=== PATIENT | female | born 1985 | race Caucasian/White ===

== ENCOUNTER → 2018-12-18 | Outpatient (CLI) | payer BC ==
[~2018-12-18] MED LIST: CONRAY-43 43% 50ML VIAL (Q9960) As Ordered ONE; PROHANCE 279.3MG/ML 5ML VIAL (A9576) As Ordered ONE
--- NOTE | 2018-12-18 09:45 | REP ---
MR arthrogram right hip: History: Pain in the right hip. Question labral tear. Decreased range of motion. Comparison studies: No comparison radiographs available. Technique: Precontrast imaging includes coronal T1 and T2-weighted scans of both hips. Postcontrast small field of view high resolution axial, coronal and sagittal images are acquired in T1 and T2-weighted scans with fat saturation. MR arthrographic findings: Pre injection imaging demonstrates normal cortical and medullary bone signal intensity in the proximal femurs bilaterally. There is no evidence to suggest avascular necrosis. There is no significant hip joint effusion on either side. Periarticular soft tissues are unremarkable. Hamstring tendon insertions appear intact. Postcontrast imaging shows good filling and enhancement of the right hip articulation. Ligamentum teres is intact. There is no evidence of acetabular labral cartilage tear. No loose body is seen. Post injection imaging demonstrates filling of the a periarticular fluid collection in the anterior soft tissues at the level of the hip articulation just posterior to the femoral artery and vein. This fluid collection postinjection measures 13 mm x 29 mm x 10 mm. Pre injection there is only a tiny sliver of fluid in this location. The findings are compatible with a small periarticular ganglion cyst. Enhanced fluid can be seen tracking into this from the anterior aspect of the joint. This is not felt to reflect injection artifact. A no other periarticular abnormality. Impression: No evidence of labral tear or other internal derangement. Anterior periarticular ganglion cyst is filled with enhanced saline on post injection imaging as above. Electronically Signed by Chris Azul MD 12/18/2018 12:55 P
--- NOTE | 2018-12-18 17:29 | REP ---
RIGHT HIP ARTHROGRAM The procedure was performed under the direction supervision of Dr. Azul. The benefits and risks including but not limited to pain, infection, bleeding and anaphylaxis were explained to the patient and informed consent was obtained. The right femoral neck was localized using fluoroscopic guidance. Skin was prepped and draped in a sterile fashion. 1% lidocaine was used as a local anesthetic. Using fluoroscopic guidance a 22 gauge spinal needle was inserted and advanced to the femoral neck. 0.5 ml of Conray 43 was injected to verify placement. 11 ml of a solution containing 20 ml of sterile saline and 0.15 ml of ProHance was injected into the joint. The needle was removed and the patient was taken to MRI for postprocedural imaging. The patient tolerated the procedure well and there were no immediate complications. Less than 6 seconds of fluoro time was utilized for this procedure. Electronically Signed by AMANDO Kim 12/18/2018 03:29 P Electronically Signed by Chris Azul MD 12/18/2018 05:20 P
== END ==
LOC: M RADPRO 06:59
PROVIDERS: ATTEND Physician Assistant
DX: M67.451 Ganglion, right hip (principal)
CPT/HCPCS: 27093; 73723; 77002; A9576; Q9960

== ENCOUNTER → 2019-04-16 | Outpatient (CLI) | payer BC ==
--- NOTE | 2019-05-06 03:52 | ECWPNPC ---
PATIENT NAME: CICI QUEZADA : 1985 GENDER: FEMALE VISIT DATE: 04/16/2019 DISCHARGE DATE: 04/16/19 1229 VISIT LOCKED DATE TIME: PHYSICIAN: BARRY ABBOTT RESOURCE: BARRY ABBOTT REASON FOR APPOINTMENT 1. BACK PAIN/DISCOMFORT HISTORY OF PRESENT ILLNESS PAIN SCREENIN-YEAR-OLD FEMALE REFERRED BY [facility] FOR CHRONIC LOW BACK PAIN, RIGHT GREATER THAN LEFT. THIS BEGAN APPROXIMATELY 2 YEARS AGO AFTER WEIGHT LIFTING SHE BEGAN TO DEVELOP RIGHT LOW BACK PAIN. THIS IMPROVED WITH CONSERVATIVE CARE. AFTER RUNNING FOR A LONG DISTANCE THIS PAST FALL SHE BEGAN TO EXPERIENCE SEVERE PAIN.RATING PAIN LEVEL A 3/10 VAS. DESCRIBES PAIN INTERMITTENT LOW BACK SPASM RIGHT GREATER THAN LEFT. HAS FAILED CONSERVATIVE CARE TO INCLUDE PHYSICAL THERAPY AND PHOTOGRAPHIC TECHNICIAN. REVIEWED MRI AND DISCUSSED TREATMENT OPTIONS. DENIES RECENT FEVER, ILLNESS, OR SUDDEN WEIGHT LOSS. REPORTING NORMAL BOWEL AND BLADDER FUNCTION. PATIENT HAS A COMPLAINT OF ACUTE OR CHRONIC PAIN :YES FALL RISK SCREENING: SCREENING :NO FALLS REPORTED IN THE LAST YEAR CURRENT MEDICATIONS TAKING CHRISTA 3-0.02 MG TABLET 1 TABLET ORALLY ONCE A DAY NOT-TAKING CHRISTA CHRISTA TAKE ONE TABLET BY MOUTH EVERY DAY MEDICATION LIST REVIEWED AND RECONCILED WITH THE PATIENT PAST MEDICAL HISTORY ACNE BACK PAIN PLANTAR FASCITIS ALLERGIES N.K.D.A. SURGICAL HISTORY WISDOM TEETH EXTRACT FAMILY HISTORY FATHER: ALIVE 68 YRS, HYPERLIPIDEMIA MOTHER: ALIVE 66 YRS, HYPERLIPIDEMIA, HYPERTENSION MATERNAL AUNT: ALIVE, HX BREAST CANCER IN HER 50'S 1 BROTHER(S) - HEALTHY. DENIES FAMILY HX OF COLON OR OVARIAN CANCER. SOCIAL HISTORY GENERAL: TOBACCO USE ARE YOU A:NONSMOKER NEVER SMOKER HIV / HEP-C SCREENING HIV TEST OFFERED TO PATIENT:YES DATE OFFERED:12/28/2016 TEST ACCEPTED:NO HEP-C TEST OFFERED TO PATIENT:NO REASON:PATIENT DECLINED OTHERS AT HOME: SPOUSE. 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 DIET: HEALTHY. LANGUAGE DANISH. DOMESTIC VIOLENCE DENIES. RECREATIONAL DRUG USE DRUG USE?NO EXERCISE: CROSSFIT 5 DAYS WEEKLY. LEARNING BARRIERS / SPECIAL NEEDS CHANGE FROM LAST VISIT?NO BARRIERS TO LEARNING?NO HEARING IMPAIRED?NO VISION IMPAIRED?YES :CORRECTIVE LENSES COGNITIVELY IMPAIRED?NO READINESS TO LEARN?YES LEARNING PREFERENCES?NO LEARNING CAPABILITIES PRESENT?YES EMOTIONAL BARRIERS?NO SPECIAL DEVICES?NO SAP DEVELOPER NEEDED?NO PAIN CLINIC PFS, CLERGY, PUBLIC HEALTH REFERRALS HAS THE PATIENT BEEN EDUCATED REGARDING HIS/HER PLAN OF CARE?YES HAS THE PATIENT BEEN EDUCATED REGARDING PAIN, THE RISK FOR PAIN, THE IMPORTANCE OF EFFECTIVE PAIN MANAGEMENT, AND THE PAIN ASSESSMENT PROCESS?YES LATEX QUESTIONNAIRE LATEX ALLERGY : HAVE YOU EVER DEVELOPED ANY TYPE OF REACTION AFTER HANDLING LATEX PRODUCTS SUCH RUBBER GLOVES, CONDOMS, DIAPHRAGMS, BALLOONS, SOCKS, OR UNDERWEAR?NO LATEX ALLERGY : HAVE YOU EVER DEVELOPED ANY TYPE OF REACTION DURING OR AFTER DENTAL APPOINTMENT, VAGINAL/RECTAL EXAMINATION, SURGICAL PROCEDURE, OR ANY OTHER EXPOSURE?NO LATEX RISK : HAVE YOU EVER HAD ANY DIFFICULTY BREATHING OR HIVES AFTER EATING OR HANDLING ANY FRUITS, OR VEGETABLES; SUCH KIWI, BANANAS, STONE FRUITS, OR CHESTNUTSNO LATEX RISK : DO YOU HAVE A PREVIOUS PERSONAL HISTORY OF MORE THAN NINE SURGERIES, SPINA BIFIDA, OR REPEATED CATHERIZATIONS? NO LATEX RISK : ARE YOU FREQUENTLY EXPOSED TO LATEX PRODUCTS IN YOUR OCCUPATION?NO DATE ASKED : 02/13/2019 CAFFEINE CAFFEINE USE?NO ADVANCE DIRECTIVE ADVANCE DIRECTIVE DISCUSSED WITH PATIENT:YES 04/16/2019 PATIENT GIVEN INFORMATION ON HCP AT THIS TIME, DECLINED ASSISTANCE IN FILLING OUT THE FORM JS YAZDANISM NO YAZIDI BELIEFS THAT WOULD IMPACT HEALTH CARE. MARITAL STATUS: . 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 SEXUAL HX HAD SEX IN THE LAST 12 MONTHS (VAGINAL, ORAL, OR ANAL)?YES WITHMEN ONLY PREVENTION STRATEGIES DISCUSSED:CONDOMS USE PROTECTION?YES HOW OFTEN?ALL OF THE TIME LMP: HAVE YOU EVER HAD AN STD?NO HOSPITALIZATION/MAJOR DIAGNOSTIC PROCEDURE DENIES PAST HOSPITALIZATION REVIEW OF SYSTEMS REVIEWED BY: PROVIDER: BARRY CORTES . CONSTITUTIONAL: ANY CHANGE IN YOUR MEDICAL CONDITION? NO . CHILLS NO . FEVER NO . INFECTION: DO YOU HAVE NEW INFECTIONS? NO . DO YOU HAVE HISTORY OF MRSA? NO . MUSCULOSKELETAL: ANY NEW PATTERNS OF PAIN OR NUMBNESS? NO . SYTEMIC LUPUS NO . GASTROENTEROLOGY: ANY NEW CHANGE IN BOWEL CONTROL? NO . BARRETTS ESOPHAGUS NO . CIRRHOSIS NO . HEPATITIS NO . LIVER FAILURE NO . ACID REFLUX NO . UNEXPLAINED WEIGHT LOSS NO . GENITOURINARY: ANY NEW CHANGE IN BLADDER CONTROL? NO . IS THERE A CHANCE YOU COULD BE ? NO . HEMATOLOGY/LYMPH: DO YOU TAKE ANY BLOOD THINNERS? (FOR EXAMPLE- COUMADIN, PLAVIX, AGGRENOX, PLATEL, PRADAXA, OR XARELTO) NO . WHEN WAS YOUR LAST DOSE? DATE: TIME: . LOW PLATELET COUNT NO . SICKLE CELL DISEASE NO . VON WILLIEBRANDS NO . FACTOR V LEIDEN NO . THALLASEMIA NO . ANEMIA NO . EASY BRUISING NO . NEUROLOGY: HAVE YOU FALLEN IN THE PAST 12 MONTHS? NO . ANY NEW EXTREMITY NUMBNESS OR WEAKNESS? NO . HEAD INJURY NO . DEMENTIA NO . CEREBRAL PALSY NO . MULTIPLE SCLEROSIS NO . DIZZINESS NO . HEADACHE NO . STROKES NO . VERTIGO NO . CARDIOLOGY: DO YOU HAVE A PACEMAKER OR DEFIBRILLATOR? NO . ANGINA NO . HEART ATTACK NO . HEART SURGERY NO . CONGESTIVE HEART FAILURE/FLUID OVERLOAD NO . CHEST PAIN NO . HIGH BLOOD PRESSURE NO . IRREGULAR HEART BEAT NO . RESPIRATORY: HAVE YOU BEEN SICK IN THE PAST WEEK? NO . FEVER NO . FLU LIKE SYMPTOMS? NO . CPAP NO . BYPAP NO . ASTHMA NO . EMPHYSEMA NO . CHRONIC LUNG DISEASES NO . SHORTNESS OF BREATH ON EXERTION NO . COUGH NO . SNORING NO . INTEGUMENTARY: DO YOU HAVE ANY RASHES OR OPEN SORES? NO . ALLERGIC/IMMUNO: ARE YOU ALLERGIC TO IV DYE? NO . ANY NEW ALLERGIES? NO . PSYCHIATRIC: DO YOU HAVE THOUGHTS OF HURTING YOURSELF OR SOMEONE ELSE? NO . ARE YOU ABUSED, NEGLECTED, OR IN AN UNSAFE ENVIRONMENT? NO . ENDOCRINOLOGY: ARE YOU DIABETIC? NO . THYROID DISORDER NO . OTHER: DO YOU NEED ANY PRESCRIPTIONS? NO . IF YES, PLEASE LIST: ____ . ANY NEW PROBLEMS WITH YOUR MEDICATIONS? NO . WHEN DID YOU LAST EAT? ____ . WHEN DID YOU LAST DRINK? ____ . WHAT DID YOU LAST DRINK? ____ . NAME OF PERSON DRIVING YOU HOME? ____ . DO YOU HAVE ANY OTHER QUESTIONS OR CONCERNS NO . VITAL SIGNS WT 144.8 LBS, HT 63 IN, BMI 25.65 INDEX, BP 126/77 MM HG, HR 57 /MIN, RR 18 /MIN, TEMP 98.0 F, OXYGEN SAT % 100%, SAFE IN ENV? (Y/N) YES, REVIEWED BY: HESHAM. EXAMINATION GENERAL EXAMINATION: GENERAL AWAKE,ALERT ,PLEAASANT . PSYCH AFFECT NORMAL . HEENT: HEAD: NORMOCEPHALIC, EYES: PUPILS ARE EQUAL AND REACTIVE TO LIGHT.. FACE: UNREMARKABLE. NECK:NO LYMPHADENOPATHY, SUPPLE, NO THYROMEGALLY, NO JVD OR BRUITS. LUNGS: LUNG HAYNES ARE CLEAR TO AUSCULTATION BILATERALLY. GOOD MOVEMENT OF AIR . HEART: S1, S2 IN A REGULAR RATE AND RHYTHM. NO SIGNIFICANT MURMURS, RUBS OR GALLOPS NOTED . MUSCULOSKELETAL: MUSCLE STRENGTH TESTING 4/5 BILATERAL LOWER EXTREMITIES. LUMBAR: TRIGGER POINTS:, ELICITED WITH PALPATION OVER RIGHT LUMBAR PARAVERTEBRAL MUSCLES.ACTIVE ROJM OF SPINE AGGREVATES PAIN.. DIAGNOSTIC TESTS REVIEWED MRI L/S SPINE-08/2018. ASSESSMENTS MYALGIA, OTHER SITE - M79.18 (PRIMARY) TREATMENT MYALGIA, OTHER SITE NOTES: TPI RIGHT LOW BACK,TRIGGER POINT INJECTIONS MATERIAL WAS PUBLISHED TO PORTAL. PREVENTIVE MEDICINE PAIN CLINIC TEACHING: PROCEDURE TEACHING PRINTED AND REVIEWED INFORMATION ON TRIGGER POINT INJECTION PROCEDURE WITH PATIENT. ALSO REVIEWED PRE-PROCEDURE INSTRUCTIONS. PATIENT VERBALIZED AN UNDERSTANDING. LUIS STEIN 04/16/2019 1:17:45 PM > . PROCEDURE CODES FA211 ESTABILISHED PATIENT [facility] CHARGE DISPOSITION & COMMUNICATION FOLLOW UP POST (REASON: TPI RIGHT LOW BACK) ELECTRONICALLY SIGNED BY SOPHIA AGUILAR ON 05/05/2019 AT 09:17 AM EDT DISCLAIMER : THIS IS A VISIT SUMMARY EXTRACTED FROM THE [employer] CHART. IT IS NOT A COPY OF THE [employer] PROGRESS NOTE. MING
== END ==
LOC: M PAIN 11:00
PROVIDERS: ATTEND Nurse Practitioner Family
DX: M79.18 Myalgia, other site (principal); Z79.899 Other long term (current) drug therapy

== ENCOUNTER → 2019-06-25 | Outpatient (CLI) | payer BC | LOC: M LABSMTC 13:52 | PROVIDERS: ATTEND Anesthesiology | DX: Z11.59 Encounter for screening for other viral diseases (principal) | CPT/HCPCS: C9803; U0002 ==

== ENCOUNTER → 2019-06-26 | Outpatient (CLI) | payer BC ==
[~2019-06-26] MED LIST changes: +BUPIVACAINE HCL 0.25% 10ML VIAL As Ordered ONE; +BUPIVACAINE HCL 0.25% 30ML VIAL As Ordered ONE; -CONRAY-43 43% 50ML VIAL (Q9960) As Ordered ONE; -PROHANCE 279.3MG/ML 5ML VIAL (A9576) As Ordered ONE
--- NOTE | 2019-06-27 04:35 | ECWPNPC ---
PATIENT NAME: CICI QUEZADA : 1985 GENDER: FEMALE VISIT DATE: 06/26/2019 DISCHARGE DATE: 06/26/19 0942 VISIT LOCKED DATE TIME: PHYSICIAN: LIUDMILA SAAB MD RESOURCE: LIUDMILA SAAB MD REASON FOR APPOINTMENT 1. TPI RIGHT LOW BACK. HISTORY OF PRESENT ILLNESS HISTORY OF PRESENT ILLNESS: PAIN THE PATIENT DESCRIBES THE PAIN... FALL RISK SCREENING: SCREENING :NO FALLS REPORTED IN THE LAST YEAR CURRENT MEDICATIONS TAKING CHRISTA 3-0.02 MG TABLET 1 TABLET ORALLY ONCE A DAY NOT-TAKING CHRISTA CHRISTA TAKE ONE TABLET BY MOUTH EVERY DAY MEDICATION LIST REVIEWED AND RECONCILED WITH THE PATIENT PAST MEDICAL HISTORY ACNE BACK PAIN PLANTAR FASCITIS ALLERGIES N.K.D.A. SURGICAL HISTORY WISDOM TEETH EXTRACT FAMILY HISTORY FATHER: ALIVE 68 YRS, HYPERLIPIDEMIA MOTHER: ALIVE 66 YRS, HYPERLIPIDEMIA, HYPERTENSION MATERNAL AUNT: ALIVE, HX BREAST CANCER IN HER 50'S 1 BROTHER(S) - HEALTHY. DENIES FAMILY HX OF COLON OR OVARIAN CANCER. SOCIAL HISTORY GENERAL: TOBACCO USE ARE YOU A:NONSMOKER NEVER SMOKER LATEX QUESTIONNAIRE LATEX ALLERGY : HAVE YOU EVER DEVELOPED ANY TYPE OF REACTION AFTER HANDLING LATEX PRODUCTS SUCH RUBBER GLOVES, CONDOMS, DIAPHRAGMS, BALLOONS, SOCKS, OR UNDERWEAR?NO LATEX ALLERGY : HAVE YOU EVER DEVELOPED ANY TYPE OF REACTION DURING OR AFTER DENTAL APPOINTMENT, VAGINAL/RECTAL EXAMINATION, SURGICAL PROCEDURE, OR ANY OTHER EXPOSURE?NO DATE ASKED : 02/13/2019 LATEX RISK : HAVE YOU EVER HAD ANY DIFFICULTY BREATHING OR HIVES AFTER EATING OR HANDLING ANY FRUITS, OR VEGETABLES; SUCH KIWI, BANANAS, STONE FRUITS, OR CHESTNUTSNO LATEX RISK : DO YOU HAVE A PREVIOUS PERSONAL HISTORY OF MORE THAN NINE SURGERIES, SPINA BIFIDA, OR REPEATED CATHERIZATIONS? NO LATEX RISK : ARE YOU FREQUENTLY EXPOSED TO LATEX PRODUCTS IN YOUR OCCUPATION?NO ALCOHOL SCREENING DID YOU HAVE A DRINK CONTAINING ALCOHOL IN THE PAST YEAR?YES HOW OFTEN DID YOU HAVE SIX OR MORE DRINKS ON ONE OCCASION IN THE PAST YEAR?NEVER (0 POINTS) HOW MANY DRINKS DID YOU HAVE ON A TYPICAL DAY WHEN YOU WERE DRINKING IN THE PAST YEAR?3 OR 4 (1 POINT) HOW OFTEN DID YOU HAVE A DRINK CONTAINING ALCOHOL IN THE PAST YEAR?MONTHLY OR LESS (1 POINT) POINTS2 INTERPRETATIONNEGATIVE RECREATIONAL DRUG USE DRUG USE?NO CAFFEINE CAFFEINE USE?NO SEXUAL HX HAD SEX IN THE LAST 12 MONTHS (VAGINAL, ORAL, OR ANAL)?YES WITHMEN ONLY PREVENTION STRATEGIES DISCUSSED:CONDOMS USE PROTECTION?YES HOW OFTEN?ALL OF THE TIME LMP: HAVE YOU EVER HAD AN STD?NO HIV / HEP-C SCREENING HIV TEST OFFERED TO PATIENT:YES DATE OFFERED:12/28/2016 TEST ACCEPTED:NO HEP-C TEST OFFERED TO PATIENT:NO 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 LANGUAGE TAJIK. 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 LEARNING BARRIERS / SPECIAL NEEDS CHANGE FROM LAST VISIT?NO BARRIERS TO LEARNING?NO HEARING IMPAIRED?NO VISION IMPAIRED?YES COGNITIVELY IMPAIRED?NO :CORRECTIVE LENSES READINESS TO LEARN?YES LEARNING PREFERENCES?NO LEARNING CAPABILITIES PRESENT?YES EMOTIONAL BARRIERS?NO SPECIAL DEVICES?NO RETAIL MERCHANDISER TECHNICIAN NEEDED?NO DOMESTIC VIOLENCE DENIES. 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 EXERCISE: CROSSFIT 5 DAYS WEEKLY. MARITAL STATUS: . OTHERS AT HOME: SPOUSE. NEW PATIENT PAIN DIARY TODAY'S VISIT 06/25/19 PATIENT DESCRIBES PAIN :BURNING, IT COMES AND GOES FROM 0-10, WHAT LEVEL IS YOUR PAIN TODAY?4 PRECIPITATING FACTORS SITTING ALLEVIATING FACTORS STANDING, MASSAGE IMPACT ON FUNCTION NO PAIN CLINIC PFS, CLERGY, PUBLIC HEALTH REFERRALS HAS THE PATIENT BEEN EDUCATED REGARDING HIS/HER PLAN OF CARE?YES HAS THE PATIENT BEEN EDUCATED REGARDING PAIN, THE RISK FOR PAIN, THE IMPORTANCE OF EFFECTIVE PAIN MANAGEMENT, AND THE PAIN ASSESSMENT PROCESS?YES ADVANCE DIRECTIVE ADVANCE DIRECTIVE DISCUSSED WITH PATIENT:YES PATIENT GIVEN INFORMATION ON HCP AT THIS TIME, DECLINED ASSISTANCE IN FILLING OUT THE FORM HOSPITALIZATION/MAJOR DIAGNOSTIC PROCEDURE NO HOSPITALIZATION HISTORY. REVIEW OF SYSTEMS REVIEWED BY: PROVIDER: LIUDMILA SAAB MD . CONSTITUTIONAL: ANY CHANGE IN YOUR MEDICAL CONDITION? NO . CHILLS NO . FEVER NO . INFECTION: DO YOU HAVE NEW INFECTIONS? NO . DO YOU HAVE HISTORY OF MRSA? NO . MUSCULOSKELETAL: ANY NEW PATTERNS OF PAIN OR NUMBNESS? PAIN IS WORSE . GASTROENTEROLOGY: ANY NEW CHANGE IN BOWEL CONTROL? NO . GENITOURINARY: ANY NEW CHANGE IN BLADDER CONTROL? NO . IS THERE A CHANCE YOU COULD BE ? NO . HEMATOLOGY/LYMPH: DO YOU TAKE ANY BLOOD THINNERS? (FOR EXAMPLE- COUMADIN, PLAVIX, AGGRENOX, PLATEL, PRADAXA, OR XARELTO) NO . WHEN WAS YOUR LAST DOSE? DATE: TIME: . NEUROLOGY: HAVE YOU FALLEN IN THE PAST 12 MONTHS? NO . ANY NEW EXTREMITY NUMBNESS OR WEAKNESS? NO . CARDIOLOGY: DO YOU HAVE A PACEMAKER OR DEFIBRILLATOR? NO . RESPIRATORY: HAVE YOU BEEN SICK IN THE PAST WEEK? NO . FEVER NO . FLU LIKE SYMPTOMS? NO . COUGH NO . INTEGUMENTARY: DO YOU HAVE ANY RASHES OR OPEN SORES? NO . ALLERGIC/IMMUNO: ARE YOU ALLERGIC TO IV DYE? NO . ANY NEW ALLERGIES? NO . PSYCHIATRIC: DO YOU HAVE THOUGHTS OF HURTING YOURSELF OR SOMEONE ELSE? NO . ARE YOU ABUSED, NEGLECTED, OR IN AN UNSAFE ENVIRONMENT? NO . ENDOCRINOLOGY: ARE YOU DIABETIC? NO . OTHER: DO YOU NEED ANY PRESCRIPTIONS? NO . IF YES, PLEASE LIST: ____ . ANY NEW PROBLEMS WITH YOUR MEDICATIONS? NO . WHEN DID YOU LAST EAT? ____06/25/19 2400 . WHEN DID YOU LAST DRINK? ____06/26/19 0600 . WHAT DID YOU LAST DRINK? ____WATER . NAME OF PERSON DRIVING YOU HOME? ____HUSBAND . DO YOU HAVE ANY OTHER QUESTIONS OR CONCERNS NO . VITAL SIGNS WT 141.8 LBS, HT 63 IN, BMI 25.12 INDEX, BP 126/63 MM HG, HR 55 /MIN, RR 18 /MIN, TEMP 97.4 F, OXYGEN SAT % 100%, SAFE IN ENV? (Y/N) YES, NA INITIALS AW 0852, REVIEWED BY: LAS. FARRIS MYALGIA, OTHER SITE - M79.18 (PRIMARY) TREATMENT OTHERS CLINICAL NOTES: PRE SCREENING CALL DONE 06/25/19 EM. PROCEDURES PN TRIGGER POINT INJECTION NO STEROIDS DATE OF PROCEDURE : PRE PROCEDURE DIAGNOSIS 1. MYALGIA. 2. PAIN AT RIGHT LOWER BACK AREA POST PROCEDURE DIAGNOSIS 1. MYALGIA. 2. PAIN AT RIGHT LOWER BACK AREA PROCEDURE TRIGGER POINT INJECTION AT RIGHT LOWER BACK AREA SURGEON DR. LIUDMILA SAAB DIVINITY PROFESSOR NONE ANESTHESIA LOCAL PRE PROCEDURE NOTE 33-YEAR-OLD PATIENT WITH HISTORY OF CHRONIC PAIN AT RIGHT LOWER BACK AREA. I EVALUATED THE PATIENT AND REVIEWED THE CHART. THERE IS EVIDENCE OF BANDS OF TISSUE WITH RESTRICTION OF MOVEMENT AND PRESENCE OF TRIGGER POINT AT THE RIGHT LOWER BACK AREA. I WENT OVER THE RISKS, ALTERNATIVES, AND BENEFITS ASSOCIATED WITH THIS PROCEDURE. THE PATIENT WOULD LIKE TO PROCEED AND GAVE CONSENT TO PERFORM THE PROCEDURE. THE PATIENT DENIES UNEXPLAINABLE WEIGHT LOSS, FEVER, CHILLS, OR NEW CHANGES IN URINARY OR BOWEL CONTROL. THE PATIENT IS COVID-19 NEGATIVE DESCRIPTION OF PROCEDURE THE PATIENT WAS BROUGHT TO THE PROCEDURE ROOM AND PLACED IN THE SITTING POSITION. THE AREA WAS CLEANED WITH ALCOHOL. THE PROCEDURE WAS DONE USING ASEPTIC STERILE TECHNIQUES. I CHECKED LATERALITY AND THE LEVEL WHERE THE PROCEDURE WAS GOING TO BE PERFORMED WITH THE PATIENT AND THE SUPPORTING STAFF AT THE MOMENT OF THE TIME OUT IN THE PROCEDURE ROOM. USING A 25-GAUGE NEEDLE, TRIGGER POINTS WERE INJECTED INTO THE RIGHT LOWER BACK AREA WITH A TOTAL OF 40 ML OF BUPIVACAINE 0.25%. AGREED WITH THE PATIENT THE PROCEDURE WAS DONE WITHOUT STEROIDS. THERE WAS NO EVIDENCE OF BLOOD, PARESTHESIA OR CEREBROSPINAL FLUID DURING THE PROCEDURE. THE PATIENT WAS SENT TO THE RECOVERY ROOM. THE PATIENT WAS MOVING THE EXTREMITIES AND DOING WELL. THERE WAS NO COMPLICATION DURING THE PROCEDURE POST PROCEDURE NOTE THE PATIENT WILL BE SEEN IN A FOLLOW UP IN THE NEXT FEW WEEKS. I AM LOOKING FOR LONG LASTING PAIN RELIEF FOR THE PATIENT WITH THIS INJECTION. INSTRUCTIONS WERE GIVEN, QUESTIONS WERE ANSWERED, AND THE PATIENT EXPRESSED UNDERSTANDING AND AGREED WITH THE PLAN. I, ANURAG WILSON, DOCUMENTED THE ABOVE INFORMATION ACTING A SCRIBE FOR DR. SAAB. I HAVE REVIEWED THE ABOVE DOCUMENT, WRITTEN BY ANURAG WILSON, SPANISH PROFESSOR, AND I VERIFY THAT IT IS ACCURATE PROCEDURE CODES 19642 INJ TRIGGER POINT 02/12 MUSCL DISPOSITION & COMMUNICATION FOLLOW UP F/UP WITH ELECTRONIC SCALE ASSEMBLER AND TESTER (REASON: POST TPI- RIGHT LOW BACK) ELECTRONICALLY SIGNED BY LIUDMILA SAAB MD, MD ON 06/26/2019 AT 04:57 PM EDT DISCLAIMER : THIS IS A VISIT SUMMARY EXTRACTED FROM THE [employer] CHART. IT IS NOT A COPY OF THE [employer] PROGRESS NOTE. MING
== END ==
LOC: M PAIN 08:30
PROVIDERS: ATTEND Anesthesiology
DX: M79.18 Myalgia, other site (principal); M54.5 Low back pain

== ENCOUNTER → 2019-07-13 | Outpatient (CLI) | payer BC ==
--- NOTE | 2019-07-15 00:44 | ECWPNPC ---
PATIENT NAME: CICI QUEZADA : 1985 GENDER: FEMALE VISIT DATE: 07/13/2019 DISCHARGE DATE: 07/13/19 1622 VISIT LOCKED DATE TIME: PHYSICIAN: BARRY ABBOTT RESOURCE: BARRY ABBOTT REASON FOR APPOINTMENT 1. [phone] POST PROC HISTORY OF PRESENT ILLNESS GENERAL: PATIENT IS AGREEABLE TO TELEPHONE VISIT TODAY. THIS IS A POST PROCEDURE FOLLOW-UP. HAD TRIGGER POINTS RIGHT LOW BACK ON 06/26/2019 WITHOUT STEROIDS. REPORTING NO IMPROVEMENT POST PROCEDURE. REPORTING INCREASE IN RIGHT GROIN PAIN. DISCUSSED TREATMENT OPTIONS. -. FALL RISK SCREENING: SCREENING :NO FALLS REPORTED IN THE LAST YEAR PAIN SCREENING: PATIENT HAS A COMPLAINT OF ACUTE OR CHRONIC PAIN :YES LOCATION OF PAIN:LOW BACK, OTHER: RIGHT LOW BACK RADIATING TO RIGHT GROIN INTENSITY OF PAIN (SCALE OF 1 TO 10):5 AVERAGE 4-5 HAS BEEN WORSE SINCE THE PROCEDURE WHAT DOES YOUR PAIN FEEL LIKE:ACHING, BURNING, INTERMITTENT, SHARP BURNING IN THE RIGHT GROIN-SHE FEELS THIS COMES ON SOONER SINCE THE TRIGGER POINT INJECTIONS DURATION:MAINLY DURING THE DAY, INTERMITTENT PAIN IS INCREASED BY: SITTING PAIN IS DECREASED BY: STANDING, ICE, MEDS DO HELP SOME PAIN HAS INTERFERED WITH THE FOLLOWING:MOOD, EMPLOYMENT PLAN/GOALS/TREATMENT/INTERVENTION/FOLLOW UP:SEE PLAN NURSING NOTE: -. PAIN CENTER INTAKE QUESTIONS: DO YOU HAVE A HISTORY OF MRSA? :NO DO YOU TAKE A BLOOD THINNERS? :NO DO YOU HAVE ANY BLEEDING DISORDERS? :NO ANY NEW NUMBNESS OR WEAKNESS IN YOUR LEGS OR ARMS? :NO ANY PACEMAKER,DEFIBRILLATOR, OR DORSAL COLUMN STIMULATOR? :NO DO YOU HAVE ANY RASHES OR OPEN SORES? :NO ARE YOU ALLERGIC TO IV DYE? :NO ARE YOU DIABETIC? :NO ANY NEW PROBLEMS WITH YOUR MEDICATIONS? :NO HAVE YOU RECEIVED A VACCINE IN THE PAST 30 DAYS? :NO DO YOU PLAN TO RECEIVE A VACCINE IN THE NEXT 21 DAYS? :NO DO YOU NEED ANY PRESCRIPTION? :NO DO YOU TAKE ANY IMMUNOSUPPRESSIVE MEDICATIONS? :NO CURRENT MEDICATIONS TAKING CHRISTA 3-0.02 MG TABLET 1 TABLET ORALLY ONCE A DAY TAKING ACETAMINOPHEN 500 MG TABLET 2 TABS ORALLY EVERY 6 HRS NEEDED TAKING CELEBREX 200 MG CAPSULE 1 CAPSULE WITH FOOD ORALLY TWICE A DAY NEEDED, NOTES: ONLY TAKES ONCE A DAY DISCONTINUED CHRISTA CHRISTA TAKE ONE TABLET BY MOUTH EVERY DAY , NOTES: DUPLICATE MEDICATION LIST REVIEWED AND RECONCILED WITH THE PATIENT PAST MEDICAL HISTORY ACNE BACK PAIN PLANTAR FASCITIS ALLERGIES N.K.D.A. SURGICAL HISTORY WISDOM TEETH EXTRACT FAMILY HISTORY FATHER: ALIVE 68 YRS, HYPERLIPIDEMIA MOTHER: ALIVE 66 YRS, HYPERLIPIDEMIA, HYPERTENSION MATERNAL AUNT: ALIVE, HX BREAST CANCER IN HER 50'S 1 BROTHER(S) - HEALTHY. DENIES FAMILY HX OF COLON OR OVARIAN CANCER. SOCIAL HISTORY GENERAL: TOBACCO USE ARE YOU A:NONSMOKER NEVER SMOKER LATEX QUESTIONNAIRE LATEX ALLERGY : HAVE YOU EVER DEVELOPED ANY TYPE OF REACTION AFTER HANDLING LATEX PRODUCTS SUCH RUBBER GLOVES, CONDOMS, DIAPHRAGMS, BALLOONS, SOCKS, OR UNDERWEAR?NO LATEX ALLERGY : HAVE YOU EVER DEVELOPED ANY TYPE OF REACTION DURING OR AFTER DENTAL APPOINTMENT, VAGINAL/RECTAL EXAMINATION, SURGICAL PROCEDURE, OR ANY OTHER EXPOSURE?NO LATEX RISK : HAVE YOU EVER HAD ANY DIFFICULTY BREATHING OR HIVES AFTER EATING OR HANDLING ANY FRUITS, OR VEGETABLES; SUCH KIWI, BANANAS, STONE FRUITS, OR CHESTNUTSNO LATEX RISK : DO YOU HAVE A PREVIOUS PERSONAL HISTORY OF MORE THAN NINE SURGERIES, SPINA BIFIDA, OR REPEATED CATHERIZATIONS? NO LATEX RISK : ARE YOU FREQUENTLY EXPOSED TO LATEX PRODUCTS IN YOUR OCCUPATION?NO DATE ASKED : 07/13/2019 ALCOHOL SCREENING DID YOU HAVE A DRINK CONTAINING ALCOHOL IN THE PAST YEAR?YES HOW OFTEN DID YOU HAVE SIX OR MORE DRINKS ON ONE OCCASION IN THE PAST YEAR?NEVER (0 POINTS) HOW MANY DRINKS DID YOU HAVE ON A TYPICAL DAY WHEN YOU WERE DRINKING IN THE PAST YEAR?3 OR 4 (1 POINT) HOW OFTEN DID YOU HAVE A DRINK CONTAINING ALCOHOL IN THE PAST YEAR?MONTHLY OR LESS (1 POINT) POINTS2 INTERPRETATIONNEGATIVE RECREATIONAL DRUG USE DRUG USE?NO CAFFEINE CAFFEINE USE?NO SEXUAL HX HAD SEX IN THE LAST 12 MONTHS (VAGINAL, ORAL, OR ANAL)?YES WITHMEN ONLY PREVENTION STRATEGIES DISCUSSED:CONDOMS USE PROTECTION?YES HOW OFTEN?ALL OF THE TIME LMP: HAVE YOU EVER HAD AN STD?NO HIV / HEP-C SCREENING HIV TEST OFFERED TO PATIENT:YES DATE OFFERED:12/28/2016 TEST ACCEPTED:NO HEP-C TEST OFFERED TO PATIENT:NO REASON:PATIENT DECLINED CAODAISM NO SCIENTOLOGY BELIEFS THAT WOULD IMPACT HEALTH CARE. LANGUAGE DIVEHI. 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 EXERCISE: CROSSFIT 5 DAYS WEEKLY. MARITAL STATUS: . OTHERS AT HOME: SPOUSE. PAIN CLINIC PFS, CLERGY, PUBLIC HEALTH REFERRALS HAS THE PATIENT BEEN EDUCATED REGARDING HIS/HER PLAN OF CARE?YES HAS THE PATIENT BEEN EDUCATED REGARDING PAIN, THE RISK FOR PAIN, THE IMPORTANCE OF EFFECTIVE PAIN MANAGEMENT, AND THE PAIN ASSESSMENT PROCESS?YES ADVANCE DIRECTIVE ADVANCE DIRECTIVE DISCUSSED WITH PATIENT:YES 07/13/2019 PT DOES NOT HAVE ANY ADVANCED DIRECTIVES. PT STATES HAS HCP INFORMATION BUT HAS NOT COMPLETED IT OF YET. ASSISTANCE OFFERED IN COMPLETING FORM IF NEEDED. HOSPITALIZATION/MAJOR DIAGNOSTIC PROCEDURE DENIES PAST HOSPITALIZATION REVIEW OF SYSTEMS CONSTITUTIONAL: ANY RECENT FEVER OR ILLNESS NO . CHILLS NO . GASTROENTEROLOGY: BOWEL INCONTINENCE NO . ANY NEW CHANGE IN BOWEL CONTROL? NO . ABDOMINAL PAIN NO . CONSTIPATION NO . GENITOURINARY: ANY NEW CHANGE IN BLADDER CONTROL? NO . IS THERE A CHANCE YOU COULD BE ? NO . URINARY INCONTINENCE NO . CARDIOLOGY: CHEST PRESSURE NO . CHEST PAIN NO . RESPIRATORY: COUGH NO . SHORTNESS OF BREATH NO . ASSESSMENTS MYALGIA, OTHER SITE - M79.18 (PRIMARY) TREATMENT MYALGIA, OTHER SITE NOTES: AFTER DISCUSSING POTENTIAL RISKS ASSOCIATED WITH STEROID MEDICINE TO INCLUDE DECREASED IMMUNE STATUS, PATIENT WOULD LIKE TO TRY TRIGGER POINT INJECTION WITH STEROID MEDICATION. TRIGGER POINT INJECTION RIGHT LOW BACK. PREVENTIVE MEDICINE PAIN CLINIC TEACHING: MEDICATIONS PRE-PROCEDURE INSTRUCTIONS REVIEWED WITH PATIENT OVER THE PHONE. SHE WAS GIVEN TIME TO ASK QUESTIONS AND SHE VERBALIZED UNDERSTANDING OF THE INSTRUCTIONS. PRINTED INSTRUCTIONS MAILED TO PATIENT. AD. DISPOSITION & COMMUNICATION FOLLOW UP POST (REASON: TRIGGER POINT INJECTION RIGHT LOW BACK WITH STEROID) ELECTRONICALLY SIGNED BY SOPHIA AGUILAR ON 07/14/2019 AT 03:42 PM EDT DISCLAIMER : THIS IS A VISIT SUMMARY EXTRACTED FROM THE [employer] CHART. IT IS NOT A COPY OF THE [employer] PROGRESS NOTE. MING
== END ==
LOC: M PAIN 14:15
PROVIDERS: ATTEND Nurse Practitioner Family
DX: M79.18 Myalgia, other site (principal); Z79.899 Other long term (current) drug therapy

== ENCOUNTER → 2019-07-21 | Outpatient (CLI) | payer BC | LOC: M LABSMTC 10:43 | PROVIDERS: ATTEND Anesthesiology | DX: Z03.818 Encounter for observation for suspected exposure to other biological agents ruled out (principal) | CPT/HCPCS: C9803; U0003 ==

== ENCOUNTER → 2019-07-24 | Outpatient (CLI) | payer BC ==
[~2019-07-24] MED LIST changes: +TRIAMCINOLONE ACETONIDE SUSP 40 MG/ML VIAL (J3301) As Ordered ONE; +diazePAM 2 MG TAB As Ordered ONE
--- NOTE | 2019-07-25 00:21 | ECWPNPC ---
PATIENT NAME: CICI QUEZADA : 1985 GENDER: FEMALE VISIT DATE: 07/24/2019 DISCHARGE DATE: 07/24/19 0954 VISIT LOCKED DATE TIME: PHYSICIAN: LIUDMILA SAAB MD RESOURCE: LIUDMILA SAAB MD REASON FOR APPOINTMENT 1. TPI RT LOW BACK WITH STEROID - PAT DONE HISTORY OF PRESENT ILLNESS GENERAL: -. FALL RISK SCREENING: SCREENING :NO FALLS REPORTED IN THE LAST YEAR PAIN SCREENING: PATIENT HAS A COMPLAINT OF ACUTE OR CHRONIC PAIN :YES LOCATION OF PAIN:LOW BACK POSTERIOR THIGH AND RIGHT GROIN INTENSITY OF PAIN (SCALE OF 1 TO 10):5 WHAT DOES YOUR PAIN FEEL LIKE:ACHING, BURNING, CONTINOUS, SHOOTING GROIN - BURNING LOW BACK AND RIGHT THIGH - ACHING, SHOOTING DURATION:CONTINOUS PAIN IS INCREASED BY:OTHERS SITTING PAIN IS DECREASED BY:USE OF PAIN MEDICATIONS, OTHERS ICE, STRETCHING, STANDING NURSING NOTE: -. PAIN CENTER INTAKE QUESTIONS: DO YOU HAVE A HISTORY OF MRSA? :NO DO YOU TAKE A BLOOD THINNERS? :NO DO YOU HAVE ANY BLEEDING DISORDERS? :NO ANY NEW NUMBNESS OR WEAKNESS IN YOUR LEGS OR ARMS? :NO ANY PACEMAKER,DEFIBRILLATOR, OR DORSAL COLUMN STIMULATOR? :NO DO YOU HAVE ANY RASHES OR OPEN SORES? :NO ARE YOU ALLERGIC TO IV DYE? :NO ARE YOU DIABETIC? :NO ANY NEW PROBLEMS WITH YOUR MEDICATIONS? :NO HAVE YOU RECEIVED A VACCINE IN THE PAST 30 DAYS? :NO DO YOU PLAN TO RECEIVE A VACCINE IN THE NEXT 21 DAYS? :NO DO YOU TAKE ANY IMMUNOSUPPRESSIVE MEDICATIONS? :NO ANY HISTORY OF SEIZURES? :NO ANY HISTORY OF CARDIAC ISSUES OR EVENTS? :NO DO YOU HAVE SLEEP APNEA? : NO. ANY RECENT HEAD INJURY? :NO DO YOU HAVE ANY NEW INFECTIONS? :NO IS THERE A CHANCE YOU COULD BE ? :NO ARE YOU BREAST FEEDING? :NO WHEN DID YOU LAST EAT? : -07/22 11PM WHEN DID YOU LAST DRINK? : -07/22 WHAT DID YOU LAST DRINK? : -WATER NAME OF PERSON DRIVING YOU HOME? : -VERNON-SPOUSE DO YOU HAVE ANY OTHER QUESTIONS OR CONCERNS? : - CURRENT MEDICATIONS TAKING CHRISTA 3-0.02 MG TABLET 1 TABLET ORALLY ONCE A DAY, NOTES: 07/22 TAKING ACETAMINOPHEN 500 MG TABLET 2 TABS ORALLY EVERY 6 HRS NEEDED, NOTES: 07/22 1:30P TAKING CELEBREX 200 MG CAPSULE 1 CAPSULE WITH FOOD ORALLY TWICE A DAY NEEDED, NOTES: ONLY TAKES ONCE A DAY 1 WEEK MEDICATION LIST REVIEWED AND RECONCILED WITH THE PATIENT PAST MEDICAL HISTORY ACNE BACK PAIN PLANTAR FASCIITIS ALLERGIES N.K.D.A. SURGICAL HISTORY WISDOM TEETH EXTRACTION FAMILY HISTORY FATHER: ALIVE 68 YRS, HYPERLIPIDEMIA MOTHER: ALIVE 66 YRS, HYPERLIPIDEMIA, HYPERTENSION MATERNAL AUNT: ALIVE, HX BREAST CANCER IN HER 50'S 1 BROTHER(S) - HEALTHY. DENIES FAMILY HX OF COLON OR OVARIAN CANCER. SOCIAL HISTORY GENERAL: TOBACCO USE ARE YOU A:NONSMOKER NEVER SMOKER LATEX QUESTIONNAIRE LATEX ALLERGY : HAVE YOU EVER DEVELOPED ANY TYPE OF REACTION AFTER HANDLING LATEX PRODUCTS SUCH RUBBER GLOVES, CONDOMS, DIAPHRAGMS, BALLOONS, SOCKS, OR UNDERWEAR?NO LATEX ALLERGY : HAVE YOU EVER DEVELOPED ANY TYPE OF REACTION DURING OR AFTER DENTAL APPOINTMENT, VAGINAL/RECTAL EXAMINATION, SURGICAL PROCEDURE, OR ANY OTHER EXPOSURE?NO DATE ASKED : 07/13/2019 LATEX RISK : HAVE YOU EVER HAD ANY DIFFICULTY BREATHING OR HIVES AFTER EATING OR HANDLING ANY FRUITS, OR VEGETABLES; SUCH KIWI, BANANAS, STONE FRUITS, OR CHESTNUTSNO LATEX RISK : DO YOU HAVE A PREVIOUS PERSONAL HISTORY OF MORE THAN NINE SURGERIES, SPINA BIFIDA, OR REPEATED CATHERIZATIONS? NO LATEX RISK : ARE YOU FREQUENTLY EXPOSED TO LATEX PRODUCTS IN YOUR OCCUPATION?NO ALCOHOL SCREENING DID YOU HAVE A DRINK CONTAINING ALCOHOL IN THE PAST YEAR?YES HOW OFTEN DID YOU HAVE SIX OR MORE DRINKS ON ONE OCCASION IN THE PAST YEAR?NEVER (0 POINTS) HOW MANY DRINKS DID YOU HAVE ON A TYPICAL DAY WHEN YOU WERE DRINKING IN THE PAST YEAR?3 OR 4 (1 POINT) HOW OFTEN DID YOU HAVE A DRINK CONTAINING ALCOHOL IN THE PAST YEAR?MONTHLY OR LESS (1 POINT) POINTS2 INTERPRETATIONNEGATIVE RECREATIONAL DRUG USE DRUG USE?NO CAFFEINE CAFFEINE USE?NO SEXUAL HX HAD SEX IN THE LAST 12 MONTHS (VAGINAL, ORAL, OR ANAL)?YES WITHMEN ONLY PREVENTION STRATEGIES DISCUSSED:CONDOMS USE PROTECTION?YES HOW OFTEN?ALL OF THE TIME LMP: HAVE YOU EVER HAD AN STD?NO HIV / HEP-C SCREENING HIV TEST OFFERED TO PATIENT:YES DATE OFFERED:12/28/2016 TEST ACCEPTED:NO HEP-C TEST OFFERED TO PATIENT:NO REASON:PATIENT DECLINED RESTORATIONISM NO WORSHIP BELIEFS THAT WOULD IMPACT HEALTH CARE. LANGUAGE SAUDI ARABIAN. 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 EXERCISE: CROSSFIT 5 DAYS WEEKLY. MARITAL STATUS: . OTHERS AT HOME: SPOUSE. PAIN CLINIC PFS, CLERGY, PUBLIC HEALTH REFERRALS HAS THE PATIENT BEEN EDUCATED REGARDING HIS/HER PLAN OF CARE?YES HAS THE PATIENT BEEN EDUCATED REGARDING PAIN, THE RISK FOR PAIN, THE IMPORTANCE OF EFFECTIVE PAIN MANAGEMENT, AND THE PAIN ASSESSMENT PROCESS?YES ADVANCE DIRECTIVE ADVANCE DIRECTIVE DISCUSSED WITH PATIENT:YES 07/13/2019 PT DOES NOT HAVE ANY ADVANCED DIRECTIVES. PT STATES HAS HCP INFORMATION BUT HAS NOT COMPLETED IT OF YET. ASSISTANCE OFFERED IN COMPLETING FORM IF NEEDED. HOSPITALIZATION/MAJOR DIAGNOSTIC PROCEDURE DENIES PAST HOSPITALIZATION VITAL SIGNS WT 143.6 LBS, HT 63 IN, BMI 25.43 INDEX, BP 140/78 MM HG, HR 67 /MIN, RR 18 /MIN, TEMP 97.8 F, OXYGEN SAT % 100%, SAFE IN ENV? (Y/N) Y, NA INITIALS AW 0846, REVIEWED BY: TEN. EXAMINATION GENERAL EXAMINATION: THE PATIENT IS ALERT, ORIENTED TIMES THREE AND COOPERATIVE. HEART SHOWS REGULAR RHYTHM, NO MURMURS AND NO GALLOPS. LUNGS ARE CLEAR TO AUSCULTATION. ASSESSMENTS MYALGIA, OTHER SITE - M79.18 (PRIMARY) PROCEDURES PAIN NURSING RECORD PRE-PROCEDURE IV SITE N/A, PRE-PROCEDURE ORAL MEDICATIONS 18 VALIUM 2MG PO GIVEN BY CAROLINE MA. PROCEDURE IN ROOM 0900, PHYSICIAN IN ROOM 0929, START 0933, FINISH 0935, PHYSICIAN OUT OF ROOM 0938, OUT OF ROOM 0945, STEROID KENALOG 40 MG, O2 RA, ECG N/A, PATIENT SHIELDED NO, SAFETY STRAP NO, PREP ALCOHOL BY MD SAAB, IV INFUSED N/A, DRESSING TEGADERM BY CAROLINE MA LOC: ZINA AMAYA RN 07/24/2019 9:31:32 AM > , 1. ALERT, ORIENTED RESP: ZINA AMAYA RN 07/24/2019 9:31:35 AM > , 1. REGULAR, NO DYSPNEA COLOR: ZINA AMAYA RN 07/24/2019 9:31:51 AM > , 1. SKIN: ZINA AMAYA RN 07/24/2019 9:32:05 AM > , 1. WARM, DRY POSITION: ZINA AMAYA RN 07/24/2019 9:32:40 AM > , 4. OTHER VITALS: ZINA AMAYA RN 07/24/2019 9:45:00 AM > 141/68, 56, 18, 99% DISCHARGE: POST PAIN 0/10, DRESSING SITE DRY AND INTACT, IV N/A, GAIT STEADY, TEACHING COMPLETED, PATIENT ACKNOWLEDGES UNDERSTANDING YES, PATIENT DISCHARGED AT 0945 PN TRIGGER POINT INJECTION WITH STEROIDS PRE PROCEDURE DIAGNOSIS 1. MYALGIA 2. PAIN AT RIGHT LOWER BACK AREA POST PROCEDURE DIAGNOSIS 1. MYALGIA 2. PAIN AT RIGHT LOWER BACK AREA PROCEDURE TRIGGER POINT INJECTION AT RIGHT LOWER BACK AREA SURGEON DR. LIUDMILA SAAB CATALYST MANUFACTURING OPERATOR NONE ANESTHESIA LOCAL PRE PROCEDURE NOTE THE PATIENT HAS A HISTORY OF CHRONIC PAIN AT THE RIGHT LOWER BACK AREA. I EVALUATED THE PATIENT AND REVIEWED THE CHART. THERE IS EVIDENCE OF BANDS OF TISSUE WITH RESTRICTION OF MOVEMENT AND PRESENCE OF TRIGGER POINT AT THE RIGHT LOWER BACK AREA. I WENT OVER THE RISKS, ALTERNATIVES, AND BENEFITS ASSOCIATED WITH THIS PROCEDURE. I DISCUSSED THAT THE USE OF STEROIDS MAY CONTRIBUTE TO IMMUNOSUPPRESSION OF THE PATIENT'S BODY AGAINST INFECTIONS SUCH COVID-19. THE PATIENT IS AWARE OF THE POTENTIAL COMPLICATIONS ASSOCIATED WITH THIS VIRUS, INCLUDING, BUT NOT LIMITED TO, . I DISCUSSED THE USE OF DEXAMETHASONE INSTEAD OF KENALOG; HOWEVER, THE PATIENT WOULD LIKE TO USE KENALOG. THE PATIENT WOULD LIKE TO PROCEED AND GIVE CONSENT TO PERFORMED THE PROCEDURE. THE PATIENT DENIES UNEXPLAINABLE WEIGHT LOSS, FEVER, CHILLS, OR NEW CHANGES IN URINARY OR BOWEL CONTROL. THE PATIENT IS COVID-19 NEGATIVE DESCRIPTION OF PROCEDURE THE PATIENT WAS BROUGHT TO THE PROCEDURE ROOM AND PLACED IN THE SITTING POSITION. THE AREA WAS CLEANED WITH ALCOHOL. THE PROCEDURE WAS DONE USING ASEPTIC STERILE TECHNIQUE. I CHECKED LATERALITY AND THE LEVEL WHERE THE PROCEDURE WAS GOING TO BE PERFORMED WITH THE PATIENT AND THE SUPPORTING STAFF AT THE MOMENT OF THE TIME OUT IN THE PROCEDURE ROOM. USING A 25-GAUGE NEEDLE, TRIGGER POINTS WERE INJECTED AT THE RIGHT LOWER BACK AREA WITH A TOTAL OF 40 ML OF BUPIVACAINE 0.25% AND KENALOG 40 MG. THERE WAS NO EVIDENCE OF BLOOD, PARESTHESIA OR CEREBROSPINAL FLUID DURING THE PROCEDURE. THE PATIENT WAS SENT TO THE RECOVERY ROOM. THE PATIENT WAS MOVING THE EXTREMITIES AND DOING WELL. THERE WAS NO COMPLICATION DURING THE PROCEDURE. EBL LESS THAN 5 ML POST PROCEDURE NOTE CONSIDER SACROILIAC JOINT INJECTIONS ON THE PATIENT. THE PROCEDURE DONE WAS DISCUSSED WITH THE PATIENT. THE PATIENT WILL BE SEEN IN A FOLLOW UP IN THE NEXT FEW WEEKS. I AM LOOKING FOR LONG LASTING PAIN RELIEF FOR THE PATIENT WITH THIS INTERVENTION. INSTRUCTIONS WERE GIVEN, QUESTIONS WERE ANSWERED, AND THE PATIENT EXPRESSED UNDERSTANDING AND AGREES WITH THE PLAN. THE PATIENT IS AWARE TO STAY HOME FOR THE NEXT WEEK, IF POSSIBLE, DUE TO COVID-19. I, ANURAG WILSON, DOCUMENTED THE ABOVE INFORMATION ACTING A SCRIBE FOR DR. SAAB. I HAVE REVIEWED THE ABOVE DOCUMENT, WRITTEN BY ANURAG WILSON, GEOPHYSICAL PROSPECTING PERMIT AGENT, AND I VERIFY THAT IT IS ACCURATE PROCEDURE CODES 69705 INJ TRIGGER POINT /2 MUSCL DISPOSITION & COMMUNICATION FOLLOW UP F/UP WITH INDUSTRIAL RETROFIT DESIGNER (REASON: POST TPI RT LOW BACK) ELECTRONICALLY SIGNED BY LIUDMILA SAAB MD, MD ON 07/24/2019 AT 05:08 PM EDT DISCLAIMER : THIS IS A VISIT SUMMARY EXTRACTED FROM THE [employer] CHART. IT IS NOT A COPY OF THE [employer] PROGRESS NOTE. MING
== END ==
LOC: M PAIN 08:30
PROVIDERS: ATTEND Anesthesiology
DX: M79.18 Myalgia, other site (principal)
CPT/HCPCS: 20552; J3301

== ENCOUNTER → 2019-08-04 | Outpatient (CLI) | payer BC ==
--- NOTE | 2019-08-07 23:44 | ECWPNPC ---
PATIENT NAME: CICI QUEZADA : 1985 GENDER: FEMALE VISIT DATE: 08/04/2019 DISCHARGE DATE: 08/04/19 1223 VISIT LOCKED DATE TIME: PHYSICIAN: BARRY ABBOTT RESOURCE: BARRY ABBOTT REASON FOR APPOINTMENT 1. POST TPI HISTORY OF PRESENT ILLNESS GENERAL: HERE FOR FOLLOW-UP OF PERSISTENT RIGHT LOW BACK PAIN, RIGHT BUTTOCK AND RIGHT GROIN PAIN. STATES THAT SINCE TRIGGER POINT INJECTIONS WERE DONE SHE'S HAD A BURNING SENSATION IN HER GROIN AREA. PAIN IS CHANGED FROM A ACHING TYPE STRAIN IN HER RIGHT GROIN TO A CONSTANT BURNING SENSATION IN HER RIGHT GROIN AREA. SOME DAYS ARE BETTER THAN OTHERS. REVIEWED MRI AND DISCUSSED TREATMENT OPTIONS. HISTORY OF INJURING RIGHT GROIN DURING EXERCISES IN PHYSICAL THERAPY. -. FALL RISK SCREENING: SCREENING :NO FALLS REPORTED IN THE LAST YEAR PAIN SCREENING: PATIENT HAS A COMPLAINT OF ACUTE OR CHRONIC PAIN :YES LOCATION OF PAIN:LOW BACK INTENSITY OF PAIN (SCALE OF 1 TO 10):5 WHAT DOES YOUR PAIN FEEL LIKE:ACHING, BURNING, INTERMITTENT, THROBBING, SHOOTING NURSING NOTE: -. PAIN CENTER INTAKE QUESTIONS: NOTES: 3 DAYS OF RELIEF FROM TRIGGER POINT INJECTION, DISCUSSED GANGLION CYST WITH PCP, IS BEING REFERRED TO ORTHO GROUP FOR DISCUSSION OF REMOVAL OF CYST.. DO YOU HAVE A HISTORY OF MRSA? :NO DO YOU TAKE A BLOOD THINNERS? :NO DO YOU HAVE ANY BLEEDING DISORDERS? :NO ANY NEW NUMBNESS OR WEAKNESS IN YOUR LEGS OR ARMS? :NO ANY PACEMAKER,DEFIBRILLATOR, OR DORSAL COLUMN STIMULATOR? :NO DO YOU HAVE ANY RASHES OR OPEN SORES? :NO ARE YOU ALLERGIC TO IV DYE? :NO ARE YOU DIABETIC? :NO ANY NEW PROBLEMS WITH YOUR MEDICATIONS? :NO HAVE YOU RECEIVED A VACCINE IN THE PAST 30 DAYS? :NO DO YOU PLAN TO RECEIVE A VACCINE IN THE NEXT 21 DAYS? :NO DO YOU NEED ANY PRESCRIPTION? :NO DO YOU TAKE ANY IMMUNOSUPPRESSIVE MEDICATIONS? :NO IS THERE A CHANCE YOU COULD BE ? :NO ARE YOU BREAST FEEDING? :NO CURRENT MEDICATIONS TAKING CHRISTA 3-0.02 MG TABLET 1 TABLET ORALLY ONCE A DAY TAKING ACETAMINOPHEN 500 MG TABLET 2 TABS ORALLY EVERY 6 HRS NEEDED TAKING CELEBREX 200 MG CAPSULE 1 CAPSULE WITH FOOD ORALLY TWICE A DAY NEEDED, NOTES: ONLY TAKES ONCE A DAY 1 WEEK MEDICATION LIST REVIEWED AND RECONCILED WITH THE PATIENT PAST MEDICAL HISTORY ACNE BACK PAIN PLANTAR FASCIITIS ALLERGIES N.K.D.A. SURGICAL HISTORY WISDOM TEETH EXTRACTION FAMILY HISTORY FATHER: ALIVE 68 YRS, HYPERLIPIDEMIA MOTHER: ALIVE 66 YRS, HYPERLIPIDEMIA, HYPERTENSION MATERNAL AUNT: ALIVE, HX BREAST CANCER IN HER 50'S 1 BROTHER(S) - HEALTHY. DENIES FAMILY HX OF COLON OR OVARIAN CANCER. SOCIAL HISTORY GENERAL: TOBACCO USE ARE YOU A:NONSMOKER NEVER SMOKER LATEX QUESTIONNAIRE LATEX ALLERGY : HAVE YOU EVER DEVELOPED ANY TYPE OF REACTION AFTER HANDLING LATEX PRODUCTS SUCH RUBBER GLOVES, CONDOMS, DIAPHRAGMS, BALLOONS, SOCKS, OR UNDERWEAR?NO LATEX ALLERGY : HAVE YOU EVER DEVELOPED ANY TYPE OF REACTION DURING OR AFTER DENTAL APPOINTMENT, VAGINAL/RECTAL EXAMINATION, SURGICAL PROCEDURE, OR ANY OTHER EXPOSURE?NO LATEX RISK : HAVE YOU EVER HAD ANY DIFFICULTY BREATHING OR HIVES AFTER EATING OR HANDLING ANY FRUITS, OR VEGETABLES; SUCH KIWI, BANANAS, STONE FRUITS, OR CHESTNUTSNO LATEX RISK : DO YOU HAVE A PREVIOUS PERSONAL HISTORY OF MORE THAN NINE SURGERIES, SPINA BIFIDA, OR REPEATED CATHERIZATIONS? NO LATEX RISK : ARE YOU FREQUENTLY EXPOSED TO LATEX PRODUCTS IN YOUR OCCUPATION?NO DATE ASKED : 08/04/2019 ALCOHOL SCREENING DID YOU HAVE A DRINK CONTAINING ALCOHOL IN THE PAST YEAR?YES HOW OFTEN DID YOU HAVE SIX OR MORE DRINKS ON ONE OCCASION IN THE PAST YEAR?NEVER (0 POINTS) HOW MANY DRINKS DID YOU HAVE ON A TYPICAL DAY WHEN YOU WERE DRINKING IN THE PAST YEAR?3 OR 4 (1 POINT) HOW OFTEN DID YOU HAVE A DRINK CONTAINING ALCOHOL IN THE PAST YEAR?MONTHLY OR LESS (1 POINT) POINTS2 INTERPRETATIONNEGATIVE RECREATIONAL DRUG USE DRUG USE?NO CAFFEINE CAFFEINE USE?NO SEXUAL HX HAD SEX IN THE LAST 12 MONTHS (VAGINAL, ORAL, OR ANAL)?YES WITHMEN ONLY PREVENTION STRATEGIES DISCUSSED:CONDOMS USE PROTECTION?YES HOW OFTEN?ALL OF THE TIME LMP: HAVE YOU EVER HAD AN STD?NO HIV / HEP-C SCREENING HIV TEST OFFERED TO PATIENT:YES DATE OFFERED:12/28/2016 TEST ACCEPTED:NO HEP-C TEST OFFERED TO PATIENT:NO REASON:PATIENT DECLINED JEW NO ZOROASTRIAN BELIEFS THAT WOULD IMPACT HEALTH CARE. LANGUAGE PAPUA [place]. 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 EXERCISE: CROSSFIT 5 DAYS WEEKLY. MARITAL STATUS: . OTHERS AT HOME: SPOUSE. PAIN CLINIC PFS, CLERGY, PUBLIC HEALTH REFERRALS HAS THE PATIENT BEEN EDUCATED REGARDING HIS/HER PLAN OF CARE?YES HAS THE PATIENT BEEN EDUCATED REGARDING PAIN, THE RISK FOR PAIN, THE IMPORTANCE OF EFFECTIVE PAIN MANAGEMENT, AND THE PAIN ASSESSMENT PROCESS?YES ADVANCE DIRECTIVE ADVANCE DIRECTIVE DISCUSSED WITH PATIENT:YES PT DOES NOT HAVE ANY ADVANCED DIRECTIVES. PT STATES HAS HCP INFORMATION BUT HAS NOT COMPLETED IT OF YET. ASSISTANCE OFFERED IN COMPLETING FORM IF NEEDED. HOSPITALIZATION/MAJOR DIAGNOSTIC PROCEDURE NO HOSPITALIZATION HISTORY. REVIEW OF SYSTEMS CONSTITUTIONAL: ANY RECENT FEVER NO . CHILLS NO . WEIGHT CHANGE OF UNKNOWN REASONS NO . GASTROENTEROLOGY: NEW UNEXPLAINABLE CHANGES IN BOWEL CONTROL NO . CONSTIPATION NO . GENITOURINARY: ANY NEW CHANGE IN BLADDER CONTROL? NO . NEUROLOGY: NEW ONSET DIZZINESS OR NEUROLOGICAL CHANGES NOT MENTIONED NO . NEW NUMBNESS OR PAIN PATTERNS NOT MENTIONED AND PERTINENT TO TODAY'S VISIT NO . CARDIOLOGY: NEW CHEST PRESSURE NO . NEW CHEST PAIN NO . RESPIRATORY: UNEXPLAINABLE COUGH NO . NEW SHORTNESS OF BREATH NO . VITAL SIGNS WT 143 LBS, HT 63 IN, BMI 25.33 INDEX, BP 124/68 MM HG, HR 57 /MIN, RR 18 /MIN, TEMP 98.8 F, OXYGEN SAT % 97%, SAFE IN ENV? (Y/N) Y, NA INITIALS VT 11:26, REVIEWED BY: TEN. EXAMINATION GENERAL EXAMINATION: GENERAL AWAKE,ALERT ,PLEASANT . PSYCH AFFECT NORMAL . LUNGS: LUNG HAYNES ARE CLEAR TO AUSCULTATION BILATERALLY. GOOD MOVEMENT OF AIR . HEART: S1, S2 IN A REGULAR RATE AND RHYTHM. NO SIGNIFICANT MURMURS, RUBS OR GALLOPS NOTED . LUMBAR: PALPATION: + FOR PAIN OVER L/S SPINE. + FOR PAIN OVER L/S PARASPINALS NEGATIVE TSERING'S TESTING. NEGATIVE PAIN WITH COMPRESSION OVER RIGHT SIJ.. DIAGNOSTIC TESTS REVIEWEDMRI LS-SPINE 08/16/2018 . ASSESSMENTS BULGING LUMBAR DISC - M51.26 (PRIMARY) TREATMENT BULGING LUMBAR DISC NOTES: L4-5 LESI. PREVENTIVE MEDICINE PAIN CLINIC TEACHING: THE PATIENT HAS BEEN EDUCATED REGARDING PAIN, THE RISK FOR PAIN, THE IMPORTANCE OF EFFECTIVE PAIN MANAGEMENT, AND THE PAIN ASSESSMENT PROCESS. : REVIEWED WRITTEN AND VERBAL PRE-PROCEDURE INSTRUCTIONS AND PLAN OF CARE WITH PT, REVIEWED LUMBAR EPIDURAL INSTRUCTIONS, PT ACKNOWLEDGED UNDERSTANDING. PROCEDURE CODES FA211 ESTABILISHED PATIENT [facility] CHARGE DISPOSITION & COMMUNICATION FOLLOW UP POST (REASON: L4-5 LESI) ELECTRONICALLY SIGNED BY SOPHIA AGUILAR ON 08/07/2019 AT 10:16 AM EDT DISCLAIMER : THIS IS A VISIT SUMMARY EXTRACTED FROM THE [employer] CHART. IT IS NOT A COPY OF THE [employer] PROGRESS NOTE. MING
== END ==
LOC: M PAIN 11:15
PROVIDERS: ATTEND Nurse Practitioner Family
DX: M51.26 Other intervertebral disc displacement, lumbar region (principal)

== ENCOUNTER → 2019-08-09 | Outpatient (CLI) | payer BC | LOC: M LABSMTC 10:31 | PROVIDERS: ATTEND Anesthesiology | DX: Z03.818 Encounter for observation for suspected exposure to other biological agents ruled out (principal) | CPT/HCPCS: C9803; U0003 ==

== ENCOUNTER → 2019-08-12 | Outpatient (CLI) | payer BC ==
[~2019-08-12] MED LIST changes: -BUPIVACAINE HCL 0.25% 10ML VIAL As Ordered ONE; -BUPIVACAINE HCL 0.25% 30ML VIAL As Ordered ONE; +ISOVUE-M 300 61% 15ML VIAL As Ordered ONE; +LIDOCAINE 1% SDV 30ML VIAL As Ordered ONE; -TRIAMCINOLONE ACETONIDE SUSP 40 MG/ML VIAL (J3301) As Ordered ONE; -diazePAM 2 MG TAB As Ordered ONE; +diazePAM 5 MG TAB As Ordered ONE; +methylPREDNISolone SUSP 40 MG/ML (DEPO-medrol) VIAL (J1030) As Ordered ONE
--- NOTE | 2019-08-12 16:43 | REP ---
Clinical: Epidural block. Technique: Intraoperative fluoroscopic imaging using portable C-arm technique. Findings: Images demonstrate catheter and contrast overlying the lower lumbar spine. Total fluoroscopic time 15 seconds. Electronically Signed by Parminder Salgado MD 08/12/2019 04:34 P
--- NOTE | 2019-08-19 00:41 | ECWPNPC ---
PATIENT NAME: CICI QUEZADA : 1985 GENDER: FEMALE VISIT DATE: 08/12/2019 DISCHARGE DATE: 08/12/19 1606 VISIT LOCKED DATE TIME: PHYSICIAN: LIUDMILA SAAB MD RESOURCE: LIUDMILA SAAB MD REASON FOR APPOINTMENT 1. L4-5 LESI PAT DONE HISTORY OF PRESENT ILLNESS GENERAL: -. FALL RISK SCREENING: SCREENING :NO FALLS REPORTED IN THE LAST YEAR PAIN SCREENING: PATIENT HAS A COMPLAINT OF ACUTE OR CHRONIC PAIN :YES LOCATION OF PAIN:LOW BACK STRONGER PAIN IN RIGHT INTENSITY OF PAIN (SCALE OF 1 TO 10):4 WHAT DOES YOUR PAIN FEEL LIKE:ACHING, INTERMITTENT, THROBBING NURSING NOTE: -. PAIN CENTER INTAKE QUESTIONS: DO YOU HAVE A HISTORY OF MRSA? :NO DO YOU TAKE A BLOOD THINNERS? :NO DO YOU HAVE ANY BLEEDING DISORDERS? :NO ANY NEW NUMBNESS OR WEAKNESS IN YOUR LEGS OR ARMS? :NO ANY PACEMAKER,DEFIBRILLATOR, OR DORSAL COLUMN STIMULATOR? :NO DO YOU HAVE ANY RASHES OR OPEN SORES? :NO ARE YOU ALLERGIC TO IV DYE? :NO ARE YOU DIABETIC? :NO ANY NEW PROBLEMS WITH YOUR MEDICATIONS? :NO HAVE YOU RECEIVED A VACCINE IN THE PAST 30 DAYS? :NO DO YOU PLAN TO RECEIVE A VACCINE IN THE NEXT 21 DAYS? :NO DO YOU TAKE ANY IMMUNOSUPPRESSIVE MEDICATIONS? :NO ANY HISTORY OF SEIZURES? :NO ANY HISTORY OF CARDIAC ISSUES OR EVENTS? :NO DO YOU HAVE SLEEP APNEA? :NO ANY RECENT HEAD INJURY? :NO DO YOU HAVE ANY NEW INFECTIONS? :NO IS THERE A CHANCE YOU COULD BE ? :NO ARE YOU BREAST FEEDING? :NO WHEN DID YOU LAST EAT? : -08/11 0530A WHEN DID YOU LAST DRINK? : -08/11 1145A WHAT DID YOU LAST DRINK? : -WATER NAME OF PERSON DRIVING YOU HOME? : -DAVION DO YOU HAVE ANY OTHER QUESTIONS OR CONCERNS? : - CURRENT MEDICATIONS TAKING CHRISTA 3-0.02 MG TABLET 1 TABLET ORALLY ONCE A DAY, NOTES: 08/10 11P TAKING ACETAMINOPHEN 500 MG TABLET 2 TABS ORALLY EVERY 6 HRS NEEDED, NOTES: 08/10 1200P TAKING CELEBREX 200 MG CAPSULE 1 CAPSULE WITH FOOD ORALLY TWICE A DAY NEEDED, NOTES: ONLY TAKES ONCE A DAY 1 WEEK 3 DAYS AGO MEDICATION LIST REVIEWED AND RECONCILED WITH THE PATIENT PAST MEDICAL HISTORY ACNE BACK PAIN PLANTAR FASCIITIS ALLERGIES N.K.D.A. SURGICAL HISTORY WISDOM TEETH EXTRACTION FAMILY HISTORY FATHER: ALIVE 68 YRS, HYPERLIPIDEMIA MOTHER: ALIVE 66 YRS, HYPERLIPIDEMIA, HYPERTENSION MATERNAL AUNT: ALIVE, HX BREAST CANCER IN HER 50'S 1 BROTHER(S) - HEALTHY. DENIES FAMILY HX OF COLON OR OVARIAN CANCER. SOCIAL HISTORY GENERAL: TOBACCO USE ARE YOU A:NONSMOKER NEVER SMOKER LATEX QUESTIONNAIRE LATEX ALLERGY : HAVE YOU EVER DEVELOPED ANY TYPE OF REACTION AFTER HANDLING LATEX PRODUCTS SUCH RUBBER GLOVES, CONDOMS, DIAPHRAGMS, BALLOONS, SOCKS, OR UNDERWEAR?NO LATEX ALLERGY : HAVE YOU EVER DEVELOPED ANY TYPE OF REACTION DURING OR AFTER DENTAL APPOINTMENT, VAGINAL/RECTAL EXAMINATION, SURGICAL PROCEDURE, OR ANY OTHER EXPOSURE?NO LATEX RISK : HAVE YOU EVER HAD ANY DIFFICULTY BREATHING OR HIVES AFTER EATING OR HANDLING ANY FRUITS, OR VEGETABLES; SUCH KIWI, BANANAS, STONE FRUITS, OR CHESTNUTSNO LATEX RISK : DO YOU HAVE A PREVIOUS PERSONAL HISTORY OF MORE THAN NINE SURGERIES, SPINA BIFIDA, OR REPEATED CATHERIZATIONS? NO LATEX RISK : ARE YOU FREQUENTLY EXPOSED TO LATEX PRODUCTS IN YOUR OCCUPATION?NO DATE ASKED : 08/11/2019 ALCOHOL SCREENING DID YOU HAVE A DRINK CONTAINING ALCOHOL IN THE PAST YEAR?YES HOW OFTEN DID YOU HAVE SIX OR MORE DRINKS ON ONE OCCASION IN THE PAST YEAR?NEVER (0 POINTS) HOW MANY DRINKS DID YOU HAVE ON A TYPICAL DAY WHEN YOU WERE DRINKING IN THE PAST YEAR?3 OR 4 (1 POINT) HOW OFTEN DID YOU HAVE A DRINK CONTAINING ALCOHOL IN THE PAST YEAR?MONTHLY OR LESS (1 POINT) POINTS2 INTERPRETATIONNEGATIVE RECREATIONAL DRUG USE DRUG USE?NO CAFFEINE CAFFEINE USE?NO SEXUAL HX HAD SEX IN THE LAST 12 MONTHS (VAGINAL, ORAL, OR ANAL)?YES WITHMEN ONLY PREVENTION STRATEGIES DISCUSSED:CONDOMS USE PROTECTION?YES HOW OFTEN?ALL OF THE TIME LMP: HAVE YOU EVER HAD AN STD?NO HIV / HEP-C SCREENING HIV TEST OFFERED TO PATIENT:YES DATE OFFERED:12/28/2016 TEST ACCEPTED:NO HEP-C TEST OFFERED TO PATIENT:NO REASON:PATIENT DECLINED PROTESTANT NO RESTORATION BELIEFS THAT WOULD IMPACT HEALTH CARE. LANGUAGE IRISH. 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 EXERCISE: CROSSFIT 5 DAYS WEEKLY. MARITAL STATUS: . OTHERS AT HOME: SPOUSE. PAIN CLINIC PFS, CLERGY, PUBLIC HEALTH REFERRALS HAS THE PATIENT BEEN EDUCATED REGARDING HIS/HER PLAN OF CARE?YES HAS THE PATIENT BEEN EDUCATED REGARDING PAIN, THE RISK FOR PAIN, THE IMPORTANCE OF EFFECTIVE PAIN MANAGEMENT, AND THE PAIN ASSESSMENT PROCESS?YES ADVANCE DIRECTIVE ADVANCE DIRECTIVE DISCUSSED WITH PATIENT:YES PT DOES NOT HAVE ANY ADVANCED DIRECTIVES. PT STATES HAS HCP INFORMATION BUT HAS NOT COMPLETED IT OF YET. ASSISTANCE OFFERED IN COMPLETING FORM IF NEEDED. HOSPITALIZATION/MAJOR DIAGNOSTIC PROCEDURE NO HOSPITALIZATION HISTORY. VITAL SIGNS WT 140.2 LBS, HT 63 IN, BMI 24.83 INDEX, BP 123/64 MM HG, HR 56 /MIN, RR 16 /MIN, TEMP 97.1 F, OXYGEN SAT % 100%, SAFE IN ENV? (Y/N) Y, NA INITIALS SC 14:16, REVIEWED BY: TEN. EXAMINATION GENERAL EXAMINATION: THE PATIENT IS ALERT, ORIENTED TIMES THREE AND COOPERATIVE. HEART SHOWS REGULAR RHYTHM, NO MURMURS AND NO GALLOPS. LUNGS ARE CLEAR TO AUSCULTATION. 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 PROCEDURES PAIN NURSING RECORD PRE-PROCEDURE IV SITE LEFT ANTECUBITAL, IV STARTED # 22, IV STARTED BY: Diana LADD RN, IV ATTEMPTS 1ST ATTEMPT INFILTRATED WITH CATH THREADING. 2ND ATTEMPT WITHOUT INCIDENT. AD PROCEDURE IN ROOM 1500, PHYSICIAN IN ROOM 1535, START 1539, FINISH 1544, STEROID DEPOMEDROL 80MG, O2 RA, ECG NORMAL SINUS, PATIENT SHIELDED YES, SAFETY STRAP YES, PREP BETADINE, IV INFUSED N/A, DRESSING TEGADERM MD SAAB LOC: ZINA AMAYA RN 08/12/2019 3:41:09 PM > , 1. ALERT, ORIENTED RESP: ZINA AMAYA RN 08/12/2019 3:41:15 PM > , 1. REGULAR, NO DYSPNEA COLOR: ZINA AMAYA RN 08/12/2019 3:41:22 PM > , 1. PINK SKIN: ZINA AMAYA RN 08/12/2019 3:41:28 PM > , 1. WARM, DRY POSITION: ZINA AMAYA RN 08/12/2019 3:41:44 PM > , 1. PRONE VITALS: ZINA AMAYA RN 08/12/2019 3:30:51 PM > 127/64, 59, 18, 99% , ZINA AMAYA RN 08/12/2019 3:45:42 PM > 131/67, 75, 18, 100% , ZINA AMAYA RN 08/12/2019 3:56:00 PM > 130/60, 69, 16, 99% DISCHARGE: POST PAIN 5/10, DRESSING SITE DRY AND INTACT, IV DISCONTINUED, SITE CLEAR, CATHETER INTACT, GAIT STEADY, TEACHING COMPLETED, PATIENT ACKNOWLEDGES UNDERSTANDING YES, PATIENT DISCHARGED AT 1600 PRE PROCEDURE DIAGNOSIS LUMBAR DISC DISORDER WITH RADICULOPATHY POST PROCEDURE DIAGNOSIS LUMBAR DISC DISORDER WITH RADICULOPATHY PROCEDURE LUMBAR EPIDURAL STEROID INJECTION UNDER FLUOROSCOPIC GUIDANCE SURGEON DR. LIUDMILA SAAB PETROLEUM SAMPLER NONE ANESTHESIA LOCAL PRE PROCEDURE NOTE THE PATIENT HAS A HISTORY OF CHRONIC LOW BACK PAIN. I EVALUATED THE PATIENT AND REVIEWED THE CHART. I WENT OVER THE RISKS, ALTERNATIVES, AND BENEFITS ASSOCIATED WITH THIS PROCEDURE. I DISCUSSED THAT THE USE OF STEROIDS MAY CONTRIBUTE TO IMMUNOSUPPRESSION OF THE PATIENT'S BODY AGAINST INFECTIONS SUCH COVID-19. THE PATIENT IS AWARE OF THE POTENTIAL COMPLICATIONS ASSOCIATED WITH THIS VIRUS, INCLUDING, BUT NOT LIMITED TO, . I DISCUSSED THE USE OF DEXAMETHASONE INSTEAD OF DEPO-MEDROL; HOWEVER, THE PATIENT WOULD LIKE TO MOVE FORWARD WITH DEPO-MEDROL. THE PATIENT WOULD LIKE TO PROCEED AND GIVE CONSENT TO PERFORMED THE PROCEDURE. THE PATIENT DENIES UNEXPLAINABLE WEIGHT LOSS, FEVER, CHILLS, OR NEW CHANGES IN URINARY OR BOWEL CONTROL. THE PATIENT IS COVID-19 NEGATIVE DESCRIPTION OF PROCEDURE THE PATIENT WAS BROUGHT TO THE PROCEDURE ROOM AND PLACED IN THE PRONE POSITION. THE LUMBOSACRAL AREA WAS CLEANED WITH BETADINE SOLUTION AND DRAPED ASEPTICALLY. THE PROCEDURE WAS DONE UNDER STERILE CONDITIONS. I CHECKED LATERALITY AND THE LEVEL WHERE THE PROCEDURE WAS GOING TO BE PERFORMED WITH THE PATIENT AND THE SUPPORTING STAFF AT THE MOMENT OF THE TIME OUT IN THE PROCEDURE ROOM. UNDER FLUOROSCOPIC GUIDANCE, THE TARGET POINT WAS SELECTED AT THE INTERLAMINAR LEVEL OF L4-L5. LIDOCAINE WAS USED TO NUMB THE SKIN AND THE SUBCUTANEOUS TISSUE BELOW IT. EPIDURAL TUOHY NEEDLE, 17-GAUGE, WAS ADVANCED UNDER FLUOROSCOPIC GUIDANCE AND FOLLOWING PATIENT FEEDBACK UNTIL THE EPIDURAL SPACE WAS REACHED 7 CM DEEP INTO THE SKIN BY THE LOSS OF RESISTANCE TECHNIQUE. ISOVUE M DYE 30%, 0.25 ML, WAS INJECTED SHOWING ADEQUATE SPREAD OF THE DYE. THEN, A SOLUTION OF 3 ML OF NORMAL SALINE WITH DEPO-MEDROL 80 MG WAS INJECTED SLOWLY FOLLOWING PATIENT FEEDBACK. THERE WAS NO EVIDENCE OF BLOOD, PARESTHESIA OR CEREBROSPINAL FLUID DURING THE PROCEDURE. THE PATIENT WAS SENT TO THE RECOVERY ROOM. THE PATIENT WAS MOVING THE EXTREMITIES AND DOING WELL. THERE WAS NO COMPLICATION DURING THE PROCEDURE. EBL LESS THAN 5 ML. FLUOROSCOPY TIME WAS 15 SECONDS POST PROCEDURE NOTE THE PATIENT WILL BE SEEN IN A FOLLOW UP IN THE NEXT FEW WEEKS. I AM LOOKING FOR LONG LASTING RELIEF FOR THE PATIENT WITH THIS INTERVENTION. INSTRUCTIONS WERE GIVEN, QUESTIONS WERE ANSWERED, AND THE PATIENT EXPRESSED UNDERSTANDING AND AGREES WITH THE PLAN. THE PATIENT IS AWARE TO STAY HOME FOR THE NEXT WEEK, IF POSSIBLE, DUE TO COVID-19. I, ANURAG WILSON, DOCUMENTED THE ABOVE INFORMATION ACTING A SCRIBE FOR DR. SAAB. I HAVE REVIEWED THE ABOVE DOCUMENT, WRITTEN BY ANURAG WILSON, MANAGER ENT, AND I VERIFY THAT IT IS ACCURATE PREVENTIVE MEDICINE PAIN CLINIC TEACHING: THE PATIENT HAS BEEN EDUCATED REGARDING PAIN, THE RISK FOR PAIN, THE IMPORTANCE OF EFFECTIVE PAIN MANAGEMENT, AND THE PAIN ASSESSMENT PROCESS. : REVIEWED VERBAL AND WRITTEN POST PROCEDURE INSTRUCTIONS, DISCUSSED COVID PRECAUTIONS, PT ACKNOWLEDGED UNDERSTANDING,. DS PROCEDURE CODES 32765 LUMBAR/SACRAL W/ IMAGING DISPOSITION & COMMUNICATION FOLLOW UP F/UP WITH OUTPATIENT SURGERY RN (REASON: POST LESI L4-L5) ELECTRONICALLY SIGNED BY LIUDMILA SAAB MD, MD ON 08/18/2019 AT 06:46 PM EDT DISCLAIMER : THIS IS A VISIT SUMMARY EXTRACTED FROM THE [email or web address] CHART. IT IS NOT A COPY OF THE [email or web address] PROGRESS NOTE. MING
== END ==
LOC: M PAIN 13:45
PROVIDERS: ATTEND Anesthesiology
DX: M51.06 Intervertebral disc disorders with myelopathy, lumbar region (principal)
CPT/HCPCS: 62323; J1030; Q9967

== ENCOUNTER → 2019-09-24 | Outpatient (REF) | payer BC ==
[~2019-09-24] MED LIST changes: +CYCL-707 PO; +EXCETAB44 PO; +IBUP80TA PO; +IMIT50TA PO; -ISOVUE-M 300 61% 15ML VIAL As Ordered ONE; -LIDOCAINE 1% SDV 30ML VIAL As Ordered ONE; +VITA100T98 PO; -diazePAM 5 MG TAB As Ordered ONE; -methylPREDNISolone SUSP 40 MG/ML (DEPO-medrol) VIAL (J1030) As Ordered ONE
[2019-10-29 08:05] LABS: BASO # 0.1 10^3/uL (0.0-0.2); BASO % 0.9 % (0.0-1.0); EOS # 0.1 10^3/uL (0.0-0.5); EOS % 1.6 % (0.0-3.0); HEMATOCRIT 43.2 % (36.0-47.0); HEMOGLOBIN 14.7 g/dl (12.0-15.5); LYMPH # 1.6 10^3/uL (1.5-5.0); LYMPH % 23.2 % (24.0-44.0); MEAN CORPUSCULAR HEMOGLOBIN 32.5 pg (27.0-33.0); MEAN CORPUSCULAR VOLUME 95.6 fl (80.0-96.0); MONO # 0.5 10^3/uL (0.0-0.8); MONO % 7.1 % (0.0-5.0); NEUTROPHILS # 4.6 10^3/uL (1.5-8.5); NEUTROPHILS % 67.1 % (36.0-66.0); PLATELET COUNT, AUTOMATED 246 10^3/uL (150-450); RED BLOOD COUNT 4.52 10^6/uL (4.00-5.40); WHITE BLOOD COUNT 6.8 10^3/uL (4.0-10.0)
[2019-11-11 09:44] LABS: ALBUMIN 3.6 GM/DL (3.2-5.2); ALT/SGPT 15 U/L (12-78); BILIRUBIN,TOTAL 0.4 MG/DL (0.2-1.0); BLOOD UREA NITROGEN 17 MG/DL (7-18); CARBON DIOXIDE LEVEL 28 MEQ/L (21-32); CHLORIDE LEVEL 108 MEQ/L (98-107); CREATININE FOR GFR 0.84 MG/DL (0.55-1.30); FREE T4 1.17 NG/DL (0.76-1.46); GLOMERULAR FILTRATION RATE > 60.0 (>60); GLUCOSE, FASTING 73 MG/DL (70-100); HCG, SERUM QUANTITATIVE < 1.0 MIU/ML; IRON (FE) 82 UG/DL (50-170); PERCENT SATURATION 22.3 % (13.2-45.0); POTASSIUM SERUM 4.2 MEQ/L (3.5-5.1); SODIUM LEVEL 141 MEQ/L (136-145); TOTAL IRON BINDING CAPACITY 368 UG/DL (250-450); TOTAL PROTEIN 6.8 GM/DL (6.4-8.2)
== END ==
LOC: M LABWUC 08:25
PROVIDERS: ATTEND Physician Assistant
DX: R51 Headache (principal)

== ENCOUNTER 2019-10-12 18:26 | Emergency (ER) | payer BC ==
[~2019-10-12] VITALS: Ht 160 cm; Wt 62.6 kg
[2019-10-12] MEDS ORDERED: EXCETAB44 PO (18:36)
[2019-10-12] MEDS ORDERED: VITA100T98 PO (18:36)
[2019-10-12] MEDS ORDERED: IBUP80TA PO (18:36)
[2019-10-12] MEDS ORDERED: diphenhydrAMINE 50MG/ML VIAL (J1200) IV ONE ×2 (20:15→22:45)
[2019-10-12] MEDS ORDERED: METOCLOPRAMIDE INJ 10MG/2ML VIAL (J2765 PER 1) IV ONE ×2 (20:15→22:45)
[2019-10-12] MEDS ORDERED: NS 1,000 ML IV ONE (20:15)
[2019-10-12 20:45] LABS: BASO # 0.1 10^3/uL (0.0-0.2); BASO % 0.6 % (0.0-1.0); EOS # 0.1 10^3/uL (0.0-0.5); EOS % 1.3 % (0.0-3.0); HEMATOCRIT 42.4 % (36.0-47.0); HEMOGLOBIN 14.5 g/dl (12.0-15.5); LYMPH # 1.9 10^3/uL (1.5-5.0); MEAN CORPUSCULAR HGB CONC 34.2 g/dl (32.0-36.5); MEAN CORPUSCULAR VOLUME 93.6 fl (80.0-96.0); MONO # 0.6 10^3/uL (0.0-0.8); MONO % 7.4 % (0.0-5.0); NEUTROPHILS % 68.4 % (36.0-66.0); PLATELET COUNT, AUTOMATED 290 10^3/uL (150-450); RED BLOOD COUNT 4.53 10^6/uL (4.00-5.40); WHITE BLOOD COUNT 8.7 10^3/uL (4.0-10.0)
--- NOTE | 2019-10-12 20:56 | REPVR ---
PROCEDURE INFORMATION: Exam: CT Head Without Contrast Exam date and time: 10/12/2019 8:34 PM Age: 34 years old Clinical indication: Pain; Headache not specified; Additional info: New onset headache TECHNIQUE: Imaging protocol: Computed tomography of the head without contrast. Radiation optimization: All CT scans at this facility use at least one of these dose optimization techniques: automated exposure control; mA and/or kV adjustment per patient size (includes targeted exams where dose is matched to clinical indication); or iterative reconstruction. COMPARISON: No relevant prior studies available. FINDINGS: Brain: There is no evidence for an acute large vessel territorial infarct, intracranial hemorrhage, mass, mass effect, midline shift, or herniation. The cortical gyration pattern, basal ganglia, thalami, and cerebellum are normal in appearance. Ventricles: Normal. No hydrocephalus. Bones/joints: The skull is intact. No suspicious osteolytic or osteoblastic lesion. Sinuses: The imaged portions of the sinuses are well-aerated. No air-fluid levels are noted in the sinuses. Mastoid air cells: Clear. Auditory system: The middle ear spaces are clear. Soft tissues: Unremarkable. No soft tissue fluid collection. IMPRESSION: No acute intracranial abnormality. Electronically signed by: Kale Cooley On 10/12/2019 20:55:52 PM
[2019-10-12] MEDS ORDERED: KETOROLAC 30 MG/ML 1ML VIAL IV ONE (21:00)
[2019-10-12 21:08] LABS: BLOOD UREA NITROGEN 11 MG/DL (7-18); CARBON DIOXIDE LEVEL 29 MEQ/L (21-32); CHLORIDE LEVEL 108 MEQ/L (98-107); CREATININE FOR GFR 0.87 MG/DL (0.55-1.30); GLOMERULAR FILTRATION RATE > 60.0 (>60); GLUCOSE, FASTING 98 MG/DL (70-100); POTASSIUM SERUM 3.6 MEQ/L (3.5-5.1); SODIUM LEVEL 141 MEQ/L (136-145)
[2019-10-13] MEDS ORDERED: VALPROATE SOD INJ 1,000 MG in D5W 50 ML IV ONE (00:15)
[2019-10-13] MEDS ORDERED: IMIT50TA PO (01:55)
[2019-10-13 02:13] VITALS: BP 132/82
== END 2019-10-13 02:15 | disposition home or self-care (01) ==
LOC: M ED 18:26
DX: R51 Headache (principal); Z79.899 Other long term (current) drug therapy
CPT/HCPCS: 70450; 80048; 85025; 86140; 96361; 96365; 96375; 96376; 99284; J1200; J1885; J2765

== ENCOUNTER 2019-10-16 10:12 | Emergency (ER) | payer BC ==
[~2019-10-16] VITALS: Ht 160 cm; Wt 61.4 kg
[~2019-10-16 10:12] MED LIST changes: -CYCL-707 PO
[2019-10-16 11:36] VITALS: BP 123/72
[2019-10-16] MEDS ORDERED: CYCL-707 PO (11:36)
== END 2019-10-16 11:42 | disposition home or self-care (01) ==
LOC: M ED 10:12
DX: R51 Headache (principal); G89.29 Other chronic pain; M62.830 Muscle spasm of back

== ENCOUNTER → 2019-10-23 | Outpatient (REF) | payer BC ==
[~2019-10-23] MED LIST changes: +CYCL-707 PO
== END ==
LOC: M WUC 20:34
PROVIDERS: ATTEND Physician Assistant
DX: R30.0 Dysuria (principal)

== ENCOUNTER → 2019-11-22 | Outpatient (CLI) | payer BC ==
[2019-11-22 17:38] LABS: BASO # 0.1 10^3/uL (0.0-0.2); BASO % 0.7 % (0.0-1.0); EOS # 0.1 10^3/uL (0.0-0.5); EOS % 1.8 % (0.0-3.0); HEMATOCRIT 41.6 % (36.0-47.0); HEMOGLOBIN 13.7 g/dl (12.0-15.5); LYMPH # 1.7 10^3/uL (1.5-5.0); MEAN CORPUSCULAR HEMOGLOBIN 30.2 pg (27.0-33.0); MEAN CORPUSCULAR HGB CONC 32.9 g/dl (32.0-36.5); MEAN CORPUSCULAR VOLUME 91.8 fl (80.0-96.0); MONO # 0.5 10^3/uL (0.0-0.8); MONO % 6.5 % (0.0-5.0); NEUTROPHILS # 5.2 10^3/uL (1.5-8.5); NEUTROPHILS % 68.7 % (36.0-66.0); PLATELET COUNT, AUTOMATED 270 10^3/uL (150-450); RED BLOOD COUNT 4.53 10^6/uL (4.00-5.40); WHITE BLOOD COUNT 7.6 10^3/uL (4.0-10.0)
[2019-11-22 17:50] LABS: ALBUMIN 3.8 GM/DL (3.2-5.2); ALT/SGPT 15 U/L (12-78); BILIRUBIN,TOTAL 0.4 MG/DL (0.2-1.0); BLOOD UREA NITROGEN 14 MG/DL (7-18); CALCIUM LEVEL 8.9 MG/DL (8.5-10.1); CARBON DIOXIDE LEVEL 29 MEQ/L (21-32); CHLORIDE LEVEL 104 MEQ/L (98-107); CREATININE FOR GFR 0.79 MG/DL (0.55-1.30); GLOMERULAR FILTRATION RATE > 60.0 (>60); GLUCOSE, FASTING 73 MG/DL (70-100); POTASSIUM SERUM 3.8 MEQ/L (3.5-5.1); RHEUMATOID FACTOR QUANT < 10.0 IU/ML (<15.0); SODIUM LEVEL 139 MEQ/L (136-145); TOTAL PROTEIN 7.1 GM/DL (6.4-8.2)
[2019-11-22 19:15] LABS: ERYTHROCYTE SEDIMENTATION RATE 3 mm/hr (0-20)
[2019-11-23 09:10] LABS: TOTAL 25(OH) VITAMIN D 23.4 NG/ML (30.0-100.0)
[2019-11-24 14:09] LABS: ANTINUCLEAR ANTIBODIES DIRECT Negative (Negative)
== END ==
LOC: M WUC 16:08
PROVIDERS: ATTEND Psychiatry & Neurology Neurology
DX: R51.9 Headache, unspecified (principal)

== ENCOUNTER → 2019-12-02 | Outpatient (CLI) | payer BC ==
--- NOTE | 2019-12-03 16:25 | ECWPNPC ---
PATIENT NAME: CICI QUEZADA : 1985 GENDER: FEMALE VISIT DATE: 12/02/2019 DISCHARGE DATE: 12/02/19 1525 VISIT LOCKED DATE TIME: PHYSICIAN: BARRY ABBOTT RESOURCE: BARRY ABBOTT REASON FOR APPOINTMENT 1. RIGHT LOW BACK PAIN HISTORY OF PRESENT ILLNESS DEPRESSION SCREENING: PHQ-2 (2015 EDITION) LITTLE INTEREST OR PLEASURE IN DOING THINGS?NOT AT ALL FEELING DOWN, DEPRESSED, OR HOPELESS?NOT AT ALL TOTAL SCORE0 GENERAL: HERE FOR FOLLOW-UP OF CHRONIC RIGHT LOW BACK PAIN. HAS NOT RESPONDED TO MULTIPLE DIFFERENT PROCEDURES DONE HERE. STATES RIGHT LOW BACK PAIN ISN'T BAD ANYMORE BUT SHE IS COMPLAINING OF UPPER BACK AND NECK PAIN. SHE IS FOLLOWING WITH HER PRIMARY CARE PROVIDER. 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 FALL RISK SCREENING: SCREENING :NO FALLS REPORTED IN THE LAST YEAR NONE PAIN SCREENING: PATIENT HAS A COMPLAINT OF ACUTE OR CHRONIC PAIN :YES LOCATION OF PAIN:LOW BACK RIGHT SIDE INTENSITY OF PAIN (SCALE OF 1 TO 10):1 WHAT DOES YOUR PAIN FEEL LIKE:ACHING, THROBBING DURATION:INTERMITTENT PAIN IS INCREASED BY:ACTIVITIES, OTHERS SITTING MAKES IT WORSE PAIN IS DECREASED BY:USE OF PAIN MEDICATIONS NURSING NOTE: -. PAIN CENTER INTAKE QUESTIONS: DO YOU HAVE A HISTORY OF MRSA? :NO DO YOU TAKE A BLOOD THINNERS? :NO DO YOU HAVE ANY BLEEDING DISORDERS? :NO ANY NEW NUMBNESS OR WEAKNESS IN YOUR LEGS OR ARMS? :NO ANY PACEMAKER,DEFIBRILLATOR, OR DORSAL COLUMN STIMULATOR? :NO DO YOU HAVE ANY RASHES OR OPEN SORES? :NO ARE YOU ALLERGIC TO IV DYE? :NO ARE YOU DIABETIC? :NO ANY NEW PROBLEMS WITH YOUR MEDICATIONS? :NO HAVE YOU RECEIVED A VACCINE IN THE PAST 30 DAYS? :YES FLU VAC. NOVEMBER 19 2019 DO YOU PLAN TO RECEIVE A VACCINE IN THE NEXT 21 DAYS? :NO DO YOU NEED ANY PRESCRIPTION? :NO DO YOU TAKE ANY IMMUNOSUPPRESSIVE MEDICATIONS? :NO IS THERE A CHANCE YOU COULD BE ? :NO ARE YOU BREAST FEEDING? :NO CURRENT MEDICATIONS TAKING FLEXERIL 10 MG TABLET 1 TABLET AT BEDTIME NEEDED ORALLY ONCE A DAY TAKING MAGNESIUM OXIDE -MG SUPPLEMENT 400 MG CAPSULE 1 CAPSULE NEEDED ORALLY ONCE A DAY NOT-TAKING ACETAMINOPHEN 500 MG TABLET 2 TABS ORALLY EVERY 6 HRS NEEDED, NOTES: 08/10 1200P NOT-TAKING CELEBREX 200 MG CAPSULE 1 CAPSULE WITH FOOD ORALLY TWICE A DAY NEEDED, NOTES: ONLY TAKES ONCE A DAY 1 WEEK 3 DAYS AGO NOT-TAKING CHRITSA 3-0.02 MG TABLET 1 TABLET ORALLY ONCE A DAY, NOTES: 08/10 11 MEDICATION LIST REVIEWED AND RECONCILED WITH THE PATIENT PAST MEDICAL HISTORY ACNE BACK PAIN PLANTAR FASCIITIS ALLERGIES N.K.D.A. SURGICAL HISTORY WISDOM TEETH EXTRACTION FAMILY HISTORY FATHER: ALIVE 68 YRS, HYPERLIPIDEMIA MOTHER: ALIVE 66 YRS, HYPERLIPIDEMIA, HYPERTENSION MATERNAL AUNT: ALIVE, HX BREAST CANCER IN HER 50'S 1 BROTHER(S) - HEALTHY. DENIES FAMILY HX OF COLON OR OVARIAN CANCER. SOCIAL HISTORY GENERAL: TOBACCO USE ARE YOU A:NONSMOKER NEVER SMOKER LATEX QUESTIONNAIRE LATEX ALLERGY : HAVE YOU EVER DEVELOPED ANY TYPE OF REACTION AFTER HANDLING LATEX PRODUCTS SUCH RUBBER GLOVES, CONDOMS, DIAPHRAGMS, BALLOONS, SOCKS, OR UNDERWEAR?NO LATEX ALLERGY : HAVE YOU EVER DEVELOPED ANY TYPE OF REACTION DURING OR AFTER DENTAL APPOINTMENT, VAGINAL/RECTAL EXAMINATION, SURGICAL PROCEDURE, OR ANY OTHER EXPOSURE?NO LATEX RISK : HAVE YOU EVER HAD ANY DIFFICULTY BREATHING OR HIVES AFTER EATING OR HANDLING ANY FRUITS, OR VEGETABLES; SUCH KIWI, BANANAS, STONE FRUITS, OR CHESTNUTSNO LATEX RISK : DO YOU HAVE A PREVIOUS PERSONAL HISTORY OF MORE THAN NINE SURGERIES, SPINA BIFIDA, OR REPEATED CATHERIZATIONS? NO LATEX RISK : ARE YOU FREQUENTLY EXPOSED TO LATEX PRODUCTS IN YOUR OCCUPATION?NO DATE ASKED : 12/02/2019 ALCOHOL SCREENING DID YOU HAVE A DRINK CONTAINING ALCOHOL IN THE PAST YEAR?YES HOW OFTEN DID YOU HAVE SIX OR MORE DRINKS ON ONE OCCASION IN THE PAST YEAR?NEVER (0 POINTS) HOW MANY DRINKS DID YOU HAVE ON A TYPICAL DAY WHEN YOU WERE DRINKING IN THE PAST YEAR?3 OR 4 (1 POINT) HOW OFTEN DID YOU HAVE A DRINK CONTAINING ALCOHOL IN THE PAST YEAR?MONTHLY OR LESS (1 POINT) POINTS2 INTERPRETATIONNEGATIVE RECREATIONAL DRUG USE DRUG USE?NO CAFFEINE CAFFEINE USE?NO SEXUAL HX HAD SEX IN THE LAST 12 MONTHS (VAGINAL, ORAL, OR ANAL)?YES WITHMEN ONLY PREVENTION STRATEGIES DISCUSSED:CONDOMS USE PROTECTION?YES HOW OFTEN?ALL OF THE TIME LMP: HAVE YOU EVER HAD AN STD?NO HIV / HEP-C SCREENING HIV TEST OFFERED TO PATIENT:YES DATE OFFERED:12/28/2016 TEST ACCEPTED:NO HEP-C TEST OFFERED TO PATIENT:NO REASON:PATIENT DECLINED ZOROASTRIANISM NO CHEONDOISM BELIEFS THAT WOULD IMPACT HEALTH CARE. LANGUAGE GREEK. 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 EXERCISE: CROSSFIT 5 DAYS WEEKLY. MARITAL STATUS: . OTHERS AT HOME: SPOUSE. PAIN CLINIC PFS, CLERGY, PUBLIC HEALTH REFERRALS HAS THE PATIENT BEEN EDUCATED REGARDING HIS/HER PLAN OF CARE?YES HAS THE PATIENT BEEN EDUCATED REGARDING PAIN, THE RISK FOR PAIN, THE IMPORTANCE OF EFFECTIVE PAIN MANAGEMENT, AND THE PAIN ASSESSMENT PROCESS?YES ADVANCE DIRECTIVE ADVANCE DIRECTIVE DISCUSSED WITH PATIENT:YES PT DOES NOT HAVE ANY ADVANCED DIRECTIVES. PT STATES HAS HCP INFORMATION BUT HAS NOT COMPLETED IT OF YET. ASSISTANCE OFFERED IN COMPLETING FORM IF NEEDED. HOSPITALIZATION/MAJOR DIAGNOSTIC PROCEDURE MIGRAINE 10/12/2019 MIGRAINE 10/16/2019 REVIEW OF SYSTEMS CONSTITUTIONAL: ANY RECENT FEVER NO . CHILLS NO . WEIGHT CHANGE OF UNKNOWN REASONS NO . GASTROENTEROLOGY: NEW UNEXPLAINABLE CHANGES IN BOWEL CONTROL NO . CONSTIPATION NO . GENITOURINARY: ANY NEW CHANGE IN BLADDER CONTROL? NO . NEUROLOGY: NEW ONSET DIZZINESS OR NEUROLOGICAL CHANGES NOT MENTIONED NO . NEW NUMBNESS OR PAIN PATTERNS NOT MENTIONED AND PERTINENT TO TODAY'S VISIT NO . CARDIOLOGY: NEW CHEST PRESSURE NO . NEW CHEST PAIN NO . RESPIRATORY: UNEXPLAINABLE COUGH NO . NEW SHORTNESS OF BREATH NO . VITAL SIGNS WT 140.4 LBS, HT 63 IN, BMI 24.87 INDEX, BP 132/77 MM HG, HR 83 /MIN, RR 16 /MIN, TEMP 97.7 F, OXYGEN SAT % 99%, SAFE IN ENV? (Y/N) YES, NA INITIALS MA 14:57, REVIEWED BY: HESHAM. EXAMINATION GENERAL EXAMINATION: GENERALAWAKE,ALERT ,PLEASANT . PSYCHAFFECT NORMAL . LUNGS:LUNG HAYNES ARE CLEAR TO AUSCULTATION BILATERALLY. GOOD MOVEMENT OF AIR . HEART:S1, S2 IN A REGULAR RATE AND RHYTHM. NO SIGNIFICANT MURMURS, RUBS OR GALLOPS NOTED . ASSESSMENTS BULGING LUMBAR DISC - M51.26 (PRIMARY) MYALGIA, OTHER SITE - M79.18 TREATMENT BULGING LUMBAR DISC NOTES: CONTINUE HOME CARE, EXERCISE AND STRETCHING. SHE IS INTERESTED IN TRYING ALTERNATIVES TO TREAT PAIN I.E. REPTILE FARMER. PATIENT WILL CALL FOR FOLLOW-UP EXAM AND TREATMENT IF NECESSARY. PROCEDURE CODES FA211 ESTABILISHED PATIENT [facility] CHARGE DISPOSITION & COMMUNICATION FOLLOW UP PATIENT WILL CALL FOR F/U IF NEEDED (REASON: LOW BACK PAIN) ELECTRONICALLY SIGNED BY SOPHIA AGUILAR ON 12/03/2019 AT 01:25 PM EDT DISCLAIMER : THIS IS A VISIT SUMMARY EXTRACTED FROM THE [employer] CHART. IT IS NOT A COPY OF THE [employer] PROGRESS NOTE. MING
== END ==
LOC: M PAIN 14:45
PROVIDERS: ATTEND Nurse Practitioner Family
DX: M51.26 Other intervertebral disc displacement, lumbar region (principal); M79.18 Myalgia, other site; Z79.899 Other long term (current) drug therapy

== ENCOUNTER 2019-12-18 09:28 | Emergency (ER) | payer BC ==
[~2019-12-18] VITALS: Ht 160 cm; Wt 61.7 kg
--- NOTE | 2019-12-18 10:29 | REP ---
INDICATION: cp. COMPARISON: None. TECHNIQUE: Two views FINDINGS: The lungs are well inflated and clear. The heart, mediastinal and hilar contours are normal. There is no pneumothorax or pneumomediastinum. The [place] are symmetric and unremarkable. The bony thorax is unremarkable. No free air under the diaphragm. IMPRESSION: 1. No acute cardiopulmonary disease. <Electronically signed by Gerber López > 12/18/19 2244
[2019-12-18 11:28] VITALS: BP 109/70
--- NOTE | 2019-12-18 14:03 | ECGEPIP ---
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
== END 2019-12-18 11:32 | disposition home or self-care (01) ==
LOC: M ED 09:28
DX: R07.9 Chest pain, unspecified (principal); G43.909 Migraine, unspecified, not intractable, without status migrainosus; Z79.899 Other long term (current) drug therapy

== ENCOUNTER 2020-01-03 08:54 | Emergency (ER) | payer BC ==
[~2020-01-03] VITALS: Ht 167.6 cm; Wt 63.1 kg
[2020-01-03] MEDS ORDERED: DULO1CAP4 PO (09:04)
[2020-01-03] MEDS ORDERED: MAGN400C PO (09:04)
[2020-01-03 09:46] LABS: BASO % 0.9 % (0.0-1.0); EOS # 0.1 10^3/uL (0.0-0.5); EOS % 2.5 % (0.0-3.0); HEMATOCRIT 41.8 % (36.0-47.0); LYMPH # 1.3 10^3/uL (1.5-5.0); LYMPH % 28.7 % (24.0-44.0); MEAN CORPUSCULAR HEMOGLOBIN 30.6 pg (27.0-33.0); MEAN CORPUSCULAR HGB CONC 33.5 g/dl (32.0-36.5); MEAN CORPUSCULAR VOLUME 91.3 fl (80.0-96.0); MONO # 0.3 10^3/uL (0.0-0.8); MONO % 6.3 % (0.0-5.0); NEUTROPHILS # 2.7 10^3/uL (1.5-8.5); NEUTROPHILS % 61.4 % (36.0-66.0); PLATELET COUNT, AUTOMATED 280 10^3/uL (150-450); RED BLOOD COUNT 4.58 10^6/uL (4.00-5.40); WHITE BLOOD COUNT 4.4 10^3/uL (4.0-10.0)
[2020-01-03 10:05] LABS: HCG, SERUM QUALITATIVE NEGATIVE (NEGATIVE)
[2020-01-03 10:15] LABS: ALBUMIN 3.8 GM/DL (3.2-5.2); ALT/SGPT 12 U/L (12-78); BILIRUBIN,DIRECT 0.2 MG/DL (0.0-0.2); BILIRUBIN,TOTAL 0.6 MG/DL (0.2-1.0); BLOOD UREA NITROGEN 14 MG/DL (7-18); CALCIUM LEVEL 9.1 MG/DL (8.5-10.1); CARBON DIOXIDE LEVEL 29 MEQ/L (21-32); CHLORIDE LEVEL 107 MEQ/L (98-107); CREATININE FOR GFR 0.96 MG/DL (0.55-1.30); GLOMERULAR FILTRATION RATE > 60.0 (>60); GLUCOSE, FASTING 97 MG/DL (70-100); SODIUM LEVEL 140 MEQ/L (136-145); TOTAL PROTEIN 6.6 GM/DL (6.4-8.2)
[2020-01-03] MEDS ORDERED: NS 1,000 ML IV ONE (10:15)
[2020-01-03 10:16] LABS: FREE T4 1.02 NG/DL (0.76-1.46)
[2020-01-03 12:15] VITALS: BP 111/65
--- NOTE | 2020-01-03 19:01 | ECGEPIP ---
[facility] - ED Test Date: 2020-01-03 Pat Name: CICI QUEZADA Department: Room: - Gender: Female Electronic Service Technician: eber : 1985 Requested By: Gilmar Viveros Order Number: [id number] Reading MD: Gilmar Viveros Measurements Intervals [place] Rate: 80 P: 60 MD: 154 QRS: 66 QRSD: 92 T: 20 QT: 376 QTc: 436 Interpretive Statements SINUS RHYTHM NONSPECIFIC ST T WAVE CHANGES DELAYED R WAVE PROGRESSION 12/18/[address] T WAVE CHANGES Electronically Signed on 01-03-2020 19:01:32 EST by Gilmar Viveros
== END 2020-01-03 12:25 | disposition home or self-care (01) ==
LOC: M ED 08:54
DX: I95.1 Orthostatic hypotension (principal); G43.909 Migraine, unspecified, not intractable, without status migrainosus; Z79.899 Other long term (current) drug therapy

== ENCOUNTER → 2020-12-23 | Outpatient (REF) ==
[~2020-12-23] MED LIST changes: +DULO1CAP4 PO; +MAGN400C PO
== END ==
LOC: M LABSMTC 11:15
PROVIDERS: ATTEND Pediatrics
DX: Z20.822 Contact with and (suspected) exposure to COVID-19 (principal)

== ENCOUNTER → 2020-12-26 | Outpatient (REF) | LOC: M EMP 08:47 | PROVIDERS: ATTEND Family Medicine | DX: Z11.52 Encounter for screening for COVID-19 (principal) ==

== ENCOUNTER → 2021-01-26 | Outpatient (CLI) | payer BC ==
[2021-01-26 14:00] LABS: HEMATOCRIT 40.5 % (36.0-47.0); HEMOGLOBIN 13.8 g/dl (12.0-15.5); MEAN CORPUSCULAR HEMOGLOBIN 32.2 pg (27.0-33.0); MEAN CORPUSCULAR HGB CONC 34.1 g/dl (32.0-36.5); MEAN CORPUSCULAR VOLUME 94.4 fl (80.0-96.0); PLATELET COUNT, AUTOMATED 236 10^3/uL (150-450); RED BLOOD COUNT 4.29 10^6/uL (4.00-5.40); WHITE BLOOD COUNT 9.8 10^3/uL (4.0-10.0)
[2021-01-26 15:07] LABS: HEPATITIS C VIRUS ABY INDEX 0.1 INDEX (<0.8); HIV 1&2 SCREEN CENTAUR NEGATIVE (NEGATIVE)
[2021-01-26 15:28] LABS: GC DNA AMPLIFICATION NEGATIVE (NEGATIVE)
== END ==
LOC: M PLALAB 08:14
PROVIDERS: ATTEND Advanced Practice Midwife
DX: Z36.89 Encounter for other specified antenatal screening (principal); Z3A.11 11 weeks gestation of pregnancy

== ENCOUNTER → 2021-02-08 | Outpatient (REF) | payer BC | LOC: M PLALAB 11:37 | PROVIDERS: ATTEND Advanced Practice Midwife | DX: Z12.4 Encounter for screening for malignant neoplasm of cervix (principal) ==

== ENCOUNTER → 2021-03-08 | Outpatient (CLI) | payer BC | LOC: M WHC 07:34 | PROVIDERS: ATTEND Advanced Practice Midwife | DX: Z34.82 Encounter for supervision of other normal pregnancy, second trimester (principal); Z3A.15 15 weeks gestation of pregnancy ==

== ENCOUNTER → 2021-05-05 | Outpatient (CLI) | payer BC ==
[2021-05-05 13:12] LABS: HEMATOCRIT 38.3 % (36.0-47.0); HEMOGLOBIN 13.1 g/dl (12.0-15.5); MEAN CORPUSCULAR HEMOGLOBIN 32.7 pg (27.0-33.0); MEAN CORPUSCULAR HGB CONC 34.2 g/dl (32.0-36.5); MEAN CORPUSCULAR VOLUME 95.5 fl (80.0-96.0); PLATELET COUNT, AUTOMATED 234 10^3/uL (150-450); RED BLOOD COUNT 4.01 10^6/uL (4.00-5.40)
[2021-05-05 14:40] LABS: GC DNA AMPLIFICATION NEGATIVE (NEGATIVE)
== END ==
LOC: M PLALAB 10:23
PROVIDERS: ATTEND Specialist
DX: Z34.02 Encounter for supervision of normal first pregnancy, second trimester (principal)

== ENCOUNTER → 2021-07-06 | Outpatient (REF) | payer BC | LOC: M SFHCWAGY 09:55 | PROVIDERS: ATTEND Obstetrics & Gynecology | DX: Z36.85 Encounter for antenatal screening for Streptococcus B (principal) ==

== ENCOUNTER 2021-08-07 12:35 | Inpatient (IN) | payer BC ==
[~2021-08-07] VITALS: Ht 160 cm; Wt 82.2 kg
[2021-08-07 12:57] VITALS: BP 130/81
[2021-08-07] MEDS ORDERED: VALT1TAB PO (13:41)
[2021-08-07] MEDS ORDERED: PRENTAB9 PO (13:42)
[2021-08-07] MEDS ORDERED: ACET325C5 PO (13:43)
[2021-08-07] MEDS ORDERED: HOME MED LIST COMPLETE! XX SCH (13:45)
[2021-08-07] MEDS ORDERED: LACTATED RINGER'S 1000 ML IV STA (14:56)
[2021-08-07] MEDS ORDERED: OXYTOCIN DRIP 30 UNITS in IV 1 EA IV PRN (15:00)
[2021-08-07] MEDS ORDERED: TRANEXAMIC ACID INJection 1,000 MG in NS 100 ML IV PRN (15:00)
[2021-08-07] MEDS ORDERED: METHYLERGONOVINE MALEATE 0.2 MG/ML VIAL (J2210) IM PRN (15:00)
[2021-08-07] MEDS ORDERED: CARBOPROST TROMETHAMINE 250 MCG/ML AMP IM PRN (15:00)
[2021-08-07] MEDS ORDERED: LIDOCAINE 1% MDV 20ML VIAL INFIL PRN (15:00)
[2021-08-07 15:11] VITALS: BP 121/81
[2021-08-07] MEDS: miSOPROStol 50MCG 1/2 TABLET PO SCH ×2 (16:15→20:38)
[2021-08-07 16:16] VITALS: BP 120/73
[2021-08-07 16:45] LABS: HEMATOCRIT 41.5 % (36.0-47.0); HEMOGLOBIN 14.2 g/dl (12.0-15.5); RED BLOOD COUNT 4.32 10^6/uL (4.00-5.40); WHITE BLOOD COUNT 11.4 10^3/uL (4.0-10.0)
[2021-08-07 16:46] LABS: MEAN CORPUSCULAR HEMOGLOBIN 32.9 pg (27.0-33.0); MEAN CORPUSCULAR HGB CONC 34.2 g/dl (32.0-36.5); MEAN CORPUSCULAR VOLUME 96.1 fl (80.0-96.0); PLATELET COUNT, AUTOMATED 217 10^3/uL (150-450)
[2021-08-07 18:30] VITALS: BP 139/72
[2021-08-07 20:39] VITALS: BP 136/92
[2021-08-07] MEDS ORDERED: valACYclovir HCL 500 MG TAB PO SCH (21:00)
[2021-08-07 22:35] VITALS: BP 142/71
[2021-08-08] VITALS (54 sets, daily range): BP systolic 92–168; BP diastolic 51–94
[2021-08-08] MEDS ORDERED: OXYTOCIN DRIP 30 UNITS in IV 1 EA IV SCH ×5 (00:10→17:20)
[2021-08-08] MEDS: LR 1,000 ML IV SCH ×2 (00:30→12:13)
[2021-08-08] MEDS ORDERED: PROMETHAZINE 25MG/ML 1ML VIAL IV ONE (03:00)
[2021-08-08] MEDS ORDERED: BUTORPHANOL 2 MG/ML INJ (J0595) IV ONE (03:00)
[2021-08-08] MEDS ORDERED: ONDANSETRON 4MG 2ML VIAL IV PRN (09:40)
[2021-08-08] MEDS ORDERED: NALOXONE INJ 0.4MG/1ML VIAL (J2310 PER 1MG) IV PRN (09:40)
[2021-08-08] MEDS ORDERED: diphenhydrAMINE 50MG/ML VIAL (J1200) IV PRN (09:40)
[2021-08-08] MEDS ORDERED: ePHEDrine SULFATE 25 MG/5 ML(5MG/ML) SYRINGE IVP PRN (09:40)
[2021-08-08] MEDS ORDERED: EPIDURAL/PCA KEYS XX PRN (09:40)
[2021-08-08] MEDS ORDERED: LR 500 ML IV PRN (09:40)
[2021-08-08] MEDS ORDERED: FENTANYL/ROPIVACAINE/NACL BAG 100 ML EPIDURAL SCH ×2 (09:40)
[2021-08-08] MEDS ORDERED: CHLOROPROCAINE PRES. FREE 3% 20ML VIAL As Ordered ONE (16:07)
[2021-08-08 16:29] LABS: CORD GAS ABE A -12.6; CORD GAS HCO3 A 16.9 MEQ/L; CORD GAS O2 SAT A 70.3 %; CORD GAS PCO2 A 52.1 mmHg; CORD GAS PH A 7.128 UNITS; CORD GAS PO2 A 35.3 mmHg; CORD GAS SBC A 14.4 MEQ/L; CORD GAS TCO2 A 18.5 MEQ/L
[2021-08-08 16:30] LABS: CORD GAS ABE V -12.5; CORD GAS HCO3 V 16.5 MEQ/L; CORD GAS O2 SAT V 67.6 %; CORD GAS PCO2 V 48.8 mmHg; CORD GAS PH V 7.147 UNITS; CORD GAS SBC V 14.4 MEQ/L
[2021-08-08] MEDS ORDERED: DIBUCAINE 1% OINTMENT 30GM TOP PRN (17:20)
[2021-08-08] MEDS ORDERED: ANUSOL HC CREAM 30GM TOP PRN (17:20)
[2021-08-08] MEDS ORDERED: METHYLERGONOVINE MALEATE 0.2 MG TAB PO PRN (17:20)
[2021-08-08] MEDS ORDERED: MOM 30ML SUSPENSION UDC PO PRN (17:20)
[2021-08-08] MEDS ORDERED: ACETAMINOPHEN TAB 650MG DOSE (2X325MG) PO PRN (17:20)
[2021-08-08] MEDS ORDERED: RHOGAM 300 MCG (1500 IU) INJ (J2790) IM SCH (17:20)
[2021-08-08] MEDS ORDERED: ACETAMINOPHEN 500 MG TAB PO PRN (17:20)
[2021-08-08] MEDS ORDERED: DOCUSATE SODIUM 100MG CAPSULE PO PRN (17:20)
[2021-08-08] MEDS ORDERED: IBUPROFEN 600MG TAB PO PRN (17:20)
[2021-08-08] MEDS: IBUPROFEN 800 MG TAB PO PRN (19:17)
[2021-08-09] MEDS: IBUPROFEN 800 MG TAB PO PRN ×2 (05:49→18:14)
[2021-08-09 06:00] VITALS: BP 119/62
[2021-08-09 07:06] VITALS: BP 106/57
[2021-08-09] MEDS: PRENATAL VITAMINS CHEWABLE TABLET PO SCH (09:56)
[2021-08-09 18:00] VITALS: BP 119/58
[2021-08-10 06:00] VITALS: BP 122/66
[2021-08-10] MEDS: PRENATAL VITAMINS CHEWABLE TABLET PO SCH (08:00)
[2021-08-10] MEDS ORDERED: MEASLES,MUMPS,RUBELLA VACCINE INJ (MMR-II) (90707) SC.IMMUN ONE (09:00)
== END 2021-08-10 10:40 | disposition home or self-care (01) | DRG 560 ==
LOC: M LDO 12:35 → M LDI 15:00 → M OBS 08-08 20:47
PROVIDERS: ADMIT Advanced Practice Midwife; ATTEND Advanced Practice Midwife
PROC: 3E0DXGC Introduction of Other Therapeutic Substance into Mouth and Pharynx, External Approach (ICD-10-PCS; 2021-08-07)
PROC: 3E033VJ Introduction of Other Hormone into Peripheral Vein, Percutaneous Approach (ICD-10-PCS; 2021-08-07)
PROC: 10D07Z6 Extraction of Products of Conception, Vacuum, Via Natural or Artificial Opening (ICD-10-PCS; principal; 2021-08-08)
PROC: 0KQM0ZZ Repair Perineum Muscle, Open Approach (ICD-10-PCS; 2021-08-08)
DX: O48.0 Post-term pregnancy (principal); O98.53 Other viral diseases complicating the puerperium; O76 Abnormality in fetal heart rate and rhythm complicating labor and delivery; Z37.0 Single live birth; Z3A.40 40 weeks gestation of pregnancy; O70.1 Second degree perineal laceration during delivery; O69.1XX0 Labor and delivery complicated by cord around neck, with compression, not applicable or unspecified; B00.9 Herpesviral infection, unspecified

== ENCOUNTER → 2022-01-19 | Outpatient (REF) ==
[~2022-01-19] MED LIST changes: +ACET325C5 PO; +PRENTAB9 PO; +VALT1TAB PO
== END ==
LOC: M EMP 08:05
PROVIDERS: ATTEND Family Medicine
DX: Z20.828 Contact with and (suspected) exposure to other viral communicable diseases (principal); Z11.59 Encounter for screening for other viral diseases

== ENCOUNTER → 2022-04-25 | Outpatient (REF) | payer BC | LOC: M PLALAB 15:55 | PROVIDERS: ATTEND Advanced Practice Midwife | DX: Z12.4 Encounter for screening for malignant neoplasm of cervix (principal) | CPT/HCPCS: 87624; G0123 ==

== ENCOUNTER → 2023-05-29 | Outpatient (CLI) | payer BC ==
[2023-05-29 10:33] LABS: HEMATOCRIT 40.4 % (36.0-47.0); MEAN CORPUSCULAR HEMOGLOBIN 32.9 pg (27.0-33.0); MEAN CORPUSCULAR HGB CONC 34.7 g/dl (32.0-36.5); MEAN CORPUSCULAR VOLUME 94.8 fl (80.0-96.0); PLATELET COUNT, AUTOMATED 226 10^3/uL (150-450); RED BLOOD COUNT 4.26 10^6/uL (4.00-5.40); WHITE BLOOD COUNT 9.3 10^3/uL (4.0-10.0)
[2023-05-29 11:26] LABS: HIV 1&2 SCREEN NEGATIVE (NEGATIVE)
[2023-05-29 11:34] LABS: HEPATITIS C VIRUS ABY INDEX < 0.02 INDEX (<0.8)
[2023-05-29 12:01] LABS: GC DNA AMPLIFICATION NEGATIVE (NEGATIVE)
== END ==
LOC: M PLALAB 08:24
PROVIDERS: ATTEND Advanced Practice Midwife
DX: Z34.81 Encounter for supervision of other normal pregnancy, first trimester (principal)

== ENCOUNTER → 2023-07-04 | Outpatient (CLI) | payer BC | LOC: M WHC 12:09 | PROVIDERS: ATTEND Advanced Practice Midwife | DX: O09.522 Supervision of elderly multigravida, second trimester (principal); Z3A.18 18 weeks gestation of pregnancy ==

== ENCOUNTER → 2023-08-26 | Outpatient (CLI) | payer BC ==
[2023-08-26 18:31] LABS: HEMATOCRIT 38.6 % (36.0-47.0); HEMOGLOBIN 12.9 g/dl (12.0-15.5); MEAN CORPUSCULAR HEMOGLOBIN 32.7 pg (27.0-33.0); MEAN CORPUSCULAR HGB CONC 33.4 g/dl (32.0-36.5); PLATELET COUNT, AUTOMATED 225 10^3/uL (150-450); RED BLOOD COUNT 3.94 10^6/uL (4.00-5.40)
[2023-08-26 20:11] LABS: GC DNA AMPLIFICATION NEGATIVE (NEGATIVE)
== END ==
LOC: M PLALAB 13:55
PROVIDERS: ATTEND Specialist
DX: Z34.82 Encounter for supervision of other normal pregnancy, second trimester (principal)

== ENCOUNTER → 2023-11-06 | Outpatient (REF) | payer BC | LOC: M SFHCWAGY 16:52 | PROVIDERS: ATTEND Advanced Practice Midwife | DX: O09.523 Supervision of elderly multigravida, third trimester (principal) ==

== ENCOUNTER 2023-12-02 12:12 | Inpatient (IN) | payer BC ==
[2023-12-02] VITALS (11 sets, daily range): BP systolic 99–136; BP diastolic 58–76
[~2023-12-02] VITALS: Ht 160 cm; Wt 80.5 kg
[2023-12-02] MEDS ORDERED: MAGN400T2 PO (12:53)
[2023-12-02] MEDS ORDERED: B-2100TA PO (12:53)
[2023-12-02] MEDS ORDERED: VALT500T PO (12:53)
[2023-12-02] MEDS ORDERED: CARBOPROST TROMETHAMINE 250 MCG/ML AMP IM PRN (12:55)
[2023-12-02] MEDS ORDERED: OXYTOCIN INJ 10UNITS/ML 1ML VIAL IM PRN (12:55)
[2023-12-02] MEDS ORDERED: METHYLERGONOVINE MALEATE 0.2MG/ML 1ML VIAL IM PRN (12:55)
[2023-12-02] MEDS ORDERED: LIDOCAINE 1% MDV 20ML VIAL INFIL PRN (12:55)
[2023-12-02] MEDS ORDERED: TRANEXAMIC ACID INJection 1,000 MG in NS 100 ML IV PRN (12:55)
[2023-12-02 13:33] LABS: HEMATOCRIT 40.4 % (36.0-47.0); HEMOGLOBIN 14.1 g/dl (12.0-15.5); MEAN CORPUSCULAR HEMOGLOBIN 32.9 pg (27.0-33.0); MEAN CORPUSCULAR HGB CONC 34.9 g/dl (32.0-36.5); MEAN CORPUSCULAR VOLUME 94.2 fl (80.0-96.0); PLATELET COUNT, AUTOMATED 213 10^3/uL (150-450); RED BLOOD COUNT 4.29 10^6/uL (4.00-5.40); WHITE BLOOD COUNT 9.4 10^3/uL (4.0-10.0)
[2023-12-02] MEDS ORDERED: PENICILLIN G POTASSIUM 5 MU IV 5 MU in D5W MINI-BAG PLUS 100 ML IV STA (13:50)
[2023-12-02] MEDS: miSOPROStol 50MCG 1/2 TABLET PO SCH (13:52)
[2023-12-02 14:40] LABS: HEPATITIS C VIRUS ABY INDEX 0.02 INDEX (<0.8)
[2023-12-02] MEDS ORDERED: PEN G POT 3,000,000 UNIT/50 ML 3,000,000 UNIT in IV 1 EA IV SCH (17:50)
[2023-12-02] MEDS: valACYclovir HCL 500 MG TAB PO SCH (20:03)
[2023-12-03] VITALS (61 sets, daily range): BP systolic 93–150; BP diastolic 50–83; O2SAT 96
[2023-12-03] MEDS: PENICILLIN G POTASSIUM 5 MU IV 5 MU in D5W MINI-BAG PLUS 100 ML IV STA (04:20)
[2023-12-03] MEDS: OXYTOCIN DRIP 30 UNITS in IV 1 EA IV SCH ×2 (04:20→21:00)
[2023-12-03] MEDS: LR 1,000 ML IV SCH (04:20)
[2023-12-03] MEDS: PEN G POT 3,000,000 UNIT/50 ML 3,000,000 UNIT in IV 1 EA IV SCH (08:52)
[2023-12-03] MEDS: LACTATED RINGER'S 1000 ML IV STA (11:01)
[2023-12-03] MEDS ORDERED: EPIDURAL/PCA KEYS XX PRN (11:45)
[2023-12-03] MEDS ORDERED: NALOXONE INJ 0.4MG/1ML VIAL IV PRN (11:45)
[2023-12-03] MEDS ORDERED: diphenhydrAMINE 50MG/ML VIAL IV PRN (11:45)
[2023-12-03] MEDS ORDERED: ONDANSETRON 4MG 2ML VIAL IV PRN ×2 (11:45→21:00)
[2023-12-03] MEDS: LR 500 ML IV PRN (12:45)
[2023-12-03] MEDS: ePHEDrine SULFATE 25 MG/5 ML(5MG/ML) SYRINGE IVP PRN (12:45)
[2023-12-03] MEDS: FENTANYL/ROPIVACAINE/NACL BAG 100 ML EPIDURAL SCH (12:49)
[2023-12-03] MEDS ORDERED: ePHEDrine SULFATE 25 MG/5 ML(5MG/ML) SYRINGE IVP PRN (13:40)
[2023-12-03] MEDS: OXYTOCIN DRIP 30 UNITS in IV 1 EA IV PRN (20:30)
[2023-12-03] MEDS ORDERED: ACETAMINOPHEN 325 MG TAB PO PRN (21:00)
[2023-12-03] MEDS ORDERED: ANUSOL HC CREAM 30GM TOP PRN (21:00)
[2023-12-03] MEDS ORDERED: CALCIUM CARBONATE 500 MG CHEW U/D PO PRN (21:00)
[2023-12-03] MEDS ORDERED: DOCUSATE SODIUM 100MG CAPSULE PO PRN (21:00)
[2023-12-03] MEDS ORDERED: RHOGAM 300MCG (1500IU) INJ IM SCH (21:00)
[2023-12-03] MEDS ORDERED: IBUPROFEN 600MG TAB PO PRN (21:00)
[2023-12-04] MEDS: IBUPROFEN 800 MG TAB PO PRN (05:40)
[2023-12-04 06:00] VITALS: BP 110/62; O2SAT 97
[2023-12-04] MEDS: PRENATAL VITAMINS CHEWABLE TABLET PO SCH (09:21)
[2023-12-04 10:20] VITALS: BP 117/57; O2SAT 97
[2023-12-04 18:00] VITALS: BP 100/57; O2SAT 98
[2023-12-04] MEDS: DIBUCAINE 1% OINTMENT 30GM TOP PRN (21:12)
[2023-12-05 06:00] VITALS: BP 108/64; O2SAT 99
[2023-12-05] MEDS: MEASLES,MUMPS,RUBELLA VACCINE INJ (MMR-II) SC.IMMUN ONE (09:00)
[2023-12-05] MEDS: ACETAMINOPHEN 500 MG TAB PO PRN (10:05)
[2023-12-05] MEDS ORDERED: HYDR1CRE30 TOP (10:59)
== END 2023-12-05 14:39 | disposition home or self-care (01) | DRG 560 ==
LOC: M LDI 12:12 → M OBS 12-03 22:32
PROVIDERS: ADMIT Advanced Practice Midwife; ATTEND Obstetrics & Gynecology
PROC: 3E033VJ Introduction of Other Hormone into Peripheral Vein, Percutaneous Approach (ICD-10-PCS; 2023-12-02)
PROC: 10E0XZZ Delivery of Products of Conception, External Approach (ICD-10-PCS; principal; 2023-12-03)
PROC: 0KQM0ZZ Repair Perineum Muscle, Open Approach (ICD-10-PCS; 2023-12-03)
PROC: 10907ZC Drainage of Amniotic Fluid, Therapeutic from Products of Conception, Via Natural or Artificial Opening (ICD-10-PCS; 2023-12-03)
DX: O76 Abnormality in fetal heart rate and rhythm complicating labor and delivery (principal); O99.824 Streptococcus B carrier state complicating childbirth; Z37.0 Single live birth; Z3A.40 40 weeks gestation of pregnancy; O70.1 Second degree perineal laceration during delivery